=== PATIENT | female | born 1940 | race Caucasian/White ===

== ENCOUNTER 2018-12-30 16:10 | Observation (INO) | payer BC, MEDICARE ==
--- NOTE | 2018-12-30 16:49 | ED ---
General Adult HPI - General Chief complaint: Nausea/Vomiting/Diarrhea Stated complaint: weakness Time Seen by Provider: 12/30/18 16:20 Source: patient, family, RN notes reviewed Mode of arrival: wheelchair Limitations: no limitations - History of Present Illness Initial comments: This is a 78-year-old female who was brought in by family because of elevated bathroom today and not being able get up she been feeling very weak and nauseated unable eat very well she states she's had a very small bathroom and felt a toilet seat and could not get herself up. She does have a history of chronic A. fib hypertension GERD and asthma among other things. She has had a dry cough he states no overt fevers chills or sweats reported this time. She does states she woke up with sweats this morning however and did also let her self. - Related Data Home Medications Medication Instructions Recorded Confirmed Furosemide [Lasix] 20 mg PO DAILY 07/11/15 12/30/18 Meloxicam 15 mg PO DAILY 07/11/15 12/30/18 Metoprolol Tartrate [Lopressor] 50 mg PO BID 07/11/15 12/30/18 Cyanocobalamin (Vitamin B-12) 1,000 mcg PO DAILY 12/30/18 12/30/18 [Vitamin B-12] Gabapentin [Neurontin] 300 mg PO BID 12/30/18 12/30/18 Rivaroxaban [Xarelto] 20 mg PO DAILY 12/30/18 12/30/18 Sulfacetamide 10% Ophth Soln 1 drops BOTH EYES BID 12/30/18 12/30/18 [Bleph-10] prednisoLONE ACETATE [Pred Forte 1 drop BOTH EYES BID 12/30/18 12/30/18 1%] Previous Rx's Medication Instructions Recorded Escitalopram [Lexapro] 10 mg PO DAILY tab 11/06/15 Allergies Allergy/AdvReac Type Severity Reaction Status Date / Time No Known Allergies Allergy Verified 12/30/18 17:55 Review of Systems ROS Statement: Those systems with pertinent positive or pertinent negative responses have been documented in the HPI. ROS Other: All systems not noted in ROS Statement are negative. Past Medical History Past Medical History: Atrial Fibrillation, Asthma, Heart Failure, GERD/Reflux, Hyperlipidemia, Hypertension, Pneumonia Additional Past Medical History / Comment(s): back pain, hiatal hernia, divetiucular disease, used to be on rx for hypothyroid-taken off over 12 years ago, anemia, sinus problmes, arhtirits, cyst on liver, murmur, rheumatic fever, broke lt hand(had sx) History of Any Multi-Drug Resistant Organisms: None Reported Past Surgical History: Appendectomy, Back Surgery, Bariatric Surgery, Bladder Surgery, Cholecystectomy, Heart Catheterization, Hysterectomy, Joint Replaceme nt, Tubal Ligation Additional Past Surgical History / Comment(s): partial hysterectomt-still has ovaries,x2 nose sx, deviated septum and a revison sx.shawanda cataracts,x2 cervical fusion, colonoscopy IN 2002 OR 2004 HAD DEEPA EN Y THEN inc hernia repair AND tummy tuck, lt hip replacment, nerve stimulator, ulcers in bladder cauterized, lt hand sx-pt stated i think they took the hardware out" Past Anesthesia/Blood Transfusion Reactions: Postoperative Nausea & Vomiting (PONV) Additional Past Anesthesia/Blood Transfusion Reaction / Comment(s): blood transfuiosn 1971-no reaction to it. Past Psychological History: No Psychological Hx Reported Smoking Status: Former smoker Past Alcohol Use History: None Reported Past Drug Use History: None Reported - Past Family History Father Family Medical History: Cancer Additional Family Medical History / Comment(s): lung cancer Brother(s) Family Medical History: Cancer Additional Family Medical History / Comment(s): lung cancer Mother Family Medical History: Diabetes Mellitus General Exam - General Exam Comments Initial Comments: This is a well-developed asthenic appearing female who is awake alert oriented 3 Limitations: no limitations General appearance: alert, in no apparent distress Head exam: Present: atraumatic, normocephalic, normal inspection Eye exam: Present: normal appearance, PERRL, EOMI. Absent: scleral icterus, conjunctival injection, periorbital swelling ENT exam: Present: mucous membranes dry Neck exam: Present: normal inspection. Absent: tenderness, meningismus, lymp hadenopathy Respiratory exam: Present: other (Decreased breath sounds in the right lower lobe). Absent: respiratory distress, wheezes, rales, rhonchi, stridor Cardiovascular Exam: Present: tachycardia, irregular rhythm. Absent: systolic murmur, diastolic murmur, rubs, gallop, clicks GI/Abdominal exam: Present: soft, normal bowel sounds. Absent: distended, tenderness, guarding, rebound, rigid Extremities exam: Present: normal inspection, full ROM, normal capillary refill. Absent: tenderness, pedal edema, joint swelling, calf tenderness Back exam: Present: normal inspection Neurological exam: Present: alert, oriented X3, CN II-XII intact Psychiatric exam: Present: normal affect, normal mood Skin exam: Present: warm, dry, intact, normal color. Absent: rash Course Vital Signs 12/30/18 12/30/18 16:13 17:52 Temperature 98.3 F Pulse Rate 114 H 105 H Respiratory 20 18 Rate Blood Pressure 98/63 108/64 O2 Sat by Pulse 94 L 96 Oximetry - Reevaluation(s) Reevaluation #1: 12/30/18 18:38 The patient's heart rate was noted be going as high as in the 150s. She also demonstrates evidence of find depletion she will get IV fluids and will he started on Cardizem. EKG Findings - EKG Results: EKG: interpreted by ERMD (Here for ablation with a response rate 116 QRS 74 QT since QTC 3:30/[address]-T wave configuration) Medical Decision Making - Medical Decision Making Patient does demonstrate right lower lobe pneumonia dehydration A. fib with RVR. She will be admitted - Lab Data Result diagrams: 12/30/18 17:06 12/30/18 17:06 Lab Results 12/30/18 12/30/18 12/30/18 Range/Units 17:06 17:06 17:50 WBC 21.3 H (3.8-10.6) k/uL RBC 4.14 (3.80-5.40) m/uL Hgb 12.2 (11.4-16.0) gm/dL Hct 37.8 (34.0-46.0) % MCV 91.1 (80.0-100.0) fL MCH 29.5 (25.0-35.0) pg MCHC 32.4 (31.0-37.0) g/dL RDW 14.0 (11.5-15.5) % Plt Count 253 (150-450) k/uL Neutrophils % 94 % Lymphocytes % 3 % Monocytes % 2 % Eosinophils % 0 % Basophils % 0 % Neutrophils # 20.0 H (1.3-7.7) k/uL Lymphocytes # 0.6 L (1.0-4.8) k/uL Monocytes # 0.5 (0-1.0) k/uL Eosinophils # 0.0 (0-0.7) k/uL Basophils # 0.0 (0-0.2) k/uL Sodium 136 L (137-145) mmol/L Potassium 3.9 (3.5-5.1) mmol/L Chloride 98 (98-107) mmol/L Carbon Dioxide 28 (22-30) mmol/L Anion Gap 10 mmol/L BUN 15 (7-17) mg/dL Creatinine 0.84 (0.52-1.04) mg/dL Est GFR (CKD-EPI)AfAm 77 (>60 ml/min/1.73 sqM) Est GFR (CKD-EPI)NonAf 67 (>60 ml/min/1.73 sqM) Glucose 110 H (74-99) mg/dL Calcium 8.9 (8.4-10.2) mg/dL Magnesium 1.6 (1.6-2.3) mg/dL Total Bilirubin 1.1 (0.2-1.3) mg/dL AST 36 (14-36) U/L ALT 17 (9-52) U/L Alkaline Phosphatase 125 (38-126) U/L Creatine Kinase 57 (30-135) U/L Total Protein 7.4 (6.3-8.2) g/dL Albumin 3.9 (3.5-5.0) g/dL Lipase 25 (23-300) U/L Urine Color Yellow Urine Appearance Clear (Clear) Urine pH 5.0 (5.0-8.0) Ur Specific [place] 1.012 (1.001-1.035) Urine Protein Negative (Negative) Urine Glucose (UA) Negative (Negative) Urine Ketones Negative (Negative) Urine Blood Negative (Negative) Urine Nitrite Negative (Negative) Urine Bilirubin Negative (Negative) Urine Urobilinogen <2.0 (<2.0) mg/dL Ur Leukocyte Esterase Negative (Negative) - Radiology Data Radiology results: report reviewed (Review the imaging and report her lower lobe infiltrate), image reviewed Critical Care Time Critical Care Time: Yes Critical Care Time: 37 minutes of critical care time which includes initial presentation with history physical labs x-rays several reevaluation the patient discussed with the patient family regarding findings discussed with Dr. Haas admission orders and documentation of the above. Disposition Clinical Impression: Right lower lobe pneumonia, Rapid atrial fibrillation, Dehydration, Weakness Disposition: ADMITTED IP TO THIS HOSP Condition: Fair Referrals: Ellis Benson DO [Primary Care Provider] - 1-2 days
[2018-12-30 17:32] LABS: Basophils % (A) 0 %; Eosinophils % (A) 0 %; HCT 37.8 % (34.0-46.0); HGB 12.2 gm/dL (11.4-16.0); Lymphocytes # (A) 0.6 k/uL (1.0-4.8); Lymphocytes % (A) 3 %; MCH 29.5 pg (25.0-35.0); MCHC 32.4 g/dL (31.0-37.0); MCV 91.1 fL (80.0-100.0); Monocytes # (A) 0.5 k/uL (0-1.0); Monocytes % (A) 2 %; Neutrophils % (A) 94 %; Platelet Count 253 k/uL (150-450); RBC 4.14 m/uL (3.80-5.40); WBC 21.3 k/uL (3.8-10.6)
[2018-12-30 17:45] LABS: Albumin 3.9 g/dL (3.5-5.0); Calcium 8.9 mg/dL (8.4-10.2); Magnesium 1.6 mg/dL (1.6-2.3); Potassium 3.9 mmol/L (3.5-5.1); Total Bilirubin 1.1 mg/dL (0.2-1.3); Total Protein 7.4 g/dL (6.3-8.2)
--- NOTE | 2018-12-30 17:55 | CT ---
EXAMINATION TYPE: CT brain wo con DATE OF EXAM: 12/30/2018 COMPARISON: None HISTORY: severe headache started mid day. CT DLP: 1025.4 mGycm Automated exposure control for dose reduction was used. FINDINGS: There is mild cerebral atrophy. There is no mass effect nor midline shift. There is no sign of intrac ranial hemorrhage. Calvarium is intact. IMPRESSION: MINIMAL ATROPHY. NO ACUTE INTRACRANIAL ABNORMALITY.
[2018-12-30 17:58] LABS: Appearance,Urine Clear (Clear); Bilirubin,Urine Negative (Negative); Blood,Urine Negative (Negative); Color,Urine Yellow; Glucose,Urine (UA) Negative (Negative); Ketones,Urine Negative (Negative); Leukocyte Esterase,Urine Negative (Negative); Nitrite,Urine Negative (Negative); Protein,Urine Negative (Negative); Specific Gravity,Urine 1.012 (1.001-1.035); Urobilinogen,Urine <2.0 mg/dL (<2.0)
--- NOTE | 2018-12-30 18:25 | XR ---
EXAMINATION TYPE: XR chest 2V DATE OF EXAM: 12/30/2018 COMPARISON: 11/05/2015 HISTORY: Fall and weakness TECHNIQUE: Frontal and lateral views of the chest are obtained. FINDINGS: There is some patchy airspace infiltrate posterior right lower lobe in the superior segmen t. The other lung mcginnis are clear. There is no heart failure. Thoracic aorta is atheromatous. There is no pleural effusion. IMPRESSION: There is right lower lobe pneumonia that is new compared to old exam. No heart failure s een. There is probably COPD.
[2018-12-30] MEDS ORDERED: cefTRIAXone IN SWFI 1,000 MG/10 ML SYRINGE IVP STA (18:34)
[2018-12-30] MEDS ORDERED: AZITHROMYCIN 500 MG in SODIUM CHLORIDE 0.9% 250 ML IVPB STA (18:40)
[2018-12-30] MEDS ORDERED: PNEUMONIA PROTOCOL UTILIZED 1 EACH MISC PO PRN (18:40)
[2018-12-30] MEDS: SODIUM CHLORIDE 0.9% 1,000 ML IV SCH (19:16)
[2018-12-30] MEDS: DILTIAZEM 125 MG in SODIUM CHLORIDE 0.9% 100 ML IV SCH (19:38)
[2018-12-30 20:25] VITALS: BMI 25.5
[2018-12-30] MEDS: METOPROLOL TARTRATE 50 MG TAB PO SCH (20:41)
[2018-12-30] MEDS: GABAPENTIN 300 MG CAP PO SCH (20:41)
[2018-12-30] MEDS: SULFACETAMIDE SOD 10% OPHTH DROPS 15 ML BTL BOTH EYES SCH (22:29)
[2018-12-30] MEDS: prednisoLONE ACETATE 1% OPHTH DROPS 5 ML BTL BOTH EYES SCH (22:29)
[2018-12-31] MEDS: SODIUM CHLORIDE 0.9% 1,000 ML IV SCH ×2 (05:58→15:51)
--- NOTE | 2018-12-31 07:25 | XR ---
EXAMINATION TYPE: XR chest 2V DATE OF EXAM: 12/31/2018 COMPARISON: 12/30/2018 HISTORY: 78-year-old female pneumonia follow-up TECHNIQUE: PA and lateral views FINDINGS: Heart upper limits of normal in size. Atherosclerotic arch calcifications. Diffuse interstitial prom inence and hyperinflation. There are patchy densities right infrahilar region and left lower lung whi ch show some improvement. IMPRESSION: COPD with some improvement in patchy right infrahilar and right basilar densities, likely persistent but improving pneumonia. Follow-up after treatment to ensure complete clearance and exclude any under lying mass.
--- NOTE | 2018-12-31 08:25 | P.CRDCN ---
History of Present Illness Consult date: 12/31/18 Chief complaint: Weakness History of present illness: This is a pleasant 78-year-old female patient with us follow-up with a chemic mangler out of the town with a past medical history significant for long- standing persistent atrial fibrillation currently on oral anticoagulation presented to the emergency room not feeling well. The patient was shoveling snow few days ago and since then she has not been feeding well. She felt weak yesterday before she went to jainism. Also she described an episode of jaw pain. She denies any chest pain or chest discomfort, shortness of breath, dizziness, heart racing, or syncope. Overall she just feeling weak and tired and has no energy. The patient is not aware of any prior history of coronary artery disease or congestive heart failure and only cardiac history she has is atrial fibrillation which is currently receiving oral anticoagulation. When the patient presented to the hospital she was found to be in A. fib with controlled heart rate. The first set of troponin came in to be unremarkable. The EKG showed atrial fibrillation with nonspecific ST or T-wave abnormalities. The chest x-ray showed no acute abnormalities. Past Medical History Past Medical History: Atrial Fibrillation, Asthma, Heart Failure, GERD/Reflux, Hyperlipidemia, Hypertension, Pneumonia Additional Past Medical History / Comment(s): back pain, hiatal hernia, divetiucular disease, used to be on rx for hypothyroid-taken off over 12 years ago, anemia, sinus problmes, arhtirits, cyst on liver, murmur, rheumatic fever, broke lt hand(had sx) History of Any Multi-Drug Resistant Organisms: None Reported Past Surgical History: Appendectomy, Back Surgery, Bariatric Surgery, Bladder Surgery, Cholecystectomy, Heart Catheterization, Hysterectomy, Joint Replacement, Tubal Ligation Additional Past Surgical History / Comment(s): partial hysterectomt-still has ovaries,x2 nose sx, deviated septum and a revison sx.shawanda cataracts,x2 cervical fusion, colonoscopy IN 2002 OR 2004 HAD DEEPA EN Y THEN inc hernia repair AND tummy tuck, lt hip replacment, nerve stimulator, ulcers in bladder cauterized, lt hand sx-pt stated i think they took the hardware out" Past Anesthesia/Blood Transfusion Reactions: Postoperative Nausea & Vomiting (PONV) Additional Past Anesthesia/Blood Transfusion Reaction / Comment(s): blood transfuiosn 1971-no reaction to it. Past Psychological History: No Psychological Hx Reported Smoking Status: Former smoker Past Alcohol Use History: None Reported Additional Past Alcohol Use History / Comment(s): smoked for 18 years, 1ppd, quit 1996 Past Drug Use History: None Reported - Past Family History Father Family Medical History: Cancer Additional Family Medical History / Comment(s): lung cancer Brother(s) Family Medical History: Cancer Additional Family Medical History / Comment(s): lung cancer Mother Family Medical History: Diabetes Mellitus Medications and Allergies Home Medications Medication Instructions Recorded Confirmed Type Furosemide [Lasix] 20 mg PO DAILY 07/11/15 12/30/18 History Meloxicam 15 mg PO DAILY 07/11/15 12/30/18 History Metoprolol Tartrate [Lopressor] 50 mg PO BID 07/11/15 12/30/18 History Escitalopram [Lexapro] 10 mg PO DAILY tab 11/06/15 12/30/18 Rx Cyanocobalamin (Vitamin B-12) 1,000 mcg PO DAILY 12/30/18 12/30/18 History [Vitamin B-12] Gabapentin [Neurontin] 300 mg PO BID 12/30/18 12/30/18 History HYDROcodone/APAP 7.5-325MG [Burley 1 tab PO BID 12/30/18 12/30/18 History 7.5-325] Rivaroxaban [Xarelto] 20 mg PO DAILY 12/30/18 12/30/18 History Sulfacetamide 10% Ophth Soln 1 drops BOTH EYES BID 12/30/18 12/30/18 History [Bleph-10] prednisoLONE ACETATE [Pred Forte 1 drop BOTH EYES BID 12/30/18 12/30/18 History 1%] Allergies Allergy/AdvReac Type Severity Reaction Status Date / Time No Known Allergies Allergy Verified 12/30/18 17:55 Physical Exam Vitals: Vital Signs Temp Pulse Pulse Resp BP BP Pulse Ox 12/31/18 08:00 98.1 F 74 18 114/58 98 12/31/18 04:00 98.1 F 69 18 102/58 96 12/31/18 00:00 99.0 F 63 17 98/50 96 12/30/18 20:00 98.6 F 110 H 18 126/62 99 12/30/18 19:45 98.6 F 110 H 18 126/62 99 12/30/18 19:29 112 H 18 106/50 95 12/30/18 17:52 105 H 18 108/64 96 12/30/18 16:13 98.3 F 114 H 20 98/63 94 L Intake and Output 12/30/18 12/31/18 12/31/18 22:59 06:59 14:59 Intake Total 932.333 20 250 Balance 932.333 20 250 Intake: IV 10 20 10 Invasive Line 2 10 20 10 Intake, IV Titration 109.333 Amount Diltiazem 125 mg In 9.333 Sodium Chloride 0.9% 100 ml @ 5 MG/HR 5 mls/hr IV .Q24H KELLY Rx#:[id number] cefTRIAXone 1 gm In 100 Sodium Chloride 0.9% 50 ml @ 100 mls/hr IVPB Q24HR [facility] Rx#:[id number] Oral 813 240 Other: Voiding Method Toilet Toilet # Voids 2 Weight 63.503 kg 61.8 kg - Respiratory Respiratory: bilateral: CTA - Cardiovascular Rhythm: irregularly irregular Heart sounds: normal: S1, S2 Results 12/30/18 17:06 12/30/18 17:06 Cardiac Enzymes 12/30/18 12/30/18 Range/Units 17:06 17:06 AST 36 (14-36) U/L Troponin I <0.012 (0.000-0.034) ng/mL CBC 12/30/18 Range/Units 17:06 WBC 21.3 H (3.8-10.6) k/uL RBC 4.14 (3.80-5.40) m/uL Hgb 12.2 (11.4-16.0) gm/dL Hct 37.8 (34.0-46.0) % Plt Count 253 (150-450) k/uL Comprehensive Metabolic Panel 12/30/18 Range/Units 17:06 Sodium 136 L (137-145) mmol/L Potassium 3.9 (3.5-5.1) mmol/L Chloride 98 (98-107) mmol/L Carbon Dioxide 28 (22-30) mmol/L BUN 15 (7-17) mg/dL Creatinine 0.84 (0.52-1.04) mg/dL Glucose 110 H (74-99) mg/dL Calcium 8.9 (8.4-10.2) mg/dL AST 36 (14-36) U/L ALT 17 (9-52) U/L Alkaline Phosphatase 125 (38-126) U/L Total Protein 7.4 (6.3-8.2) g/dL Albumin 3.9 (3.5-5.0) g/dL Current Medications Generic Name Dose Route Start Last Admin Trade Name Freq PRN Reason Stop Dose Admin Hydrocodone Bitart/Acetaminophen 1 each 12/31/18 09:00 Burley 7.5-325 PO BID [facility] Azithromycin 500 mg 12/31/18 12:00 Zithromax PO DAILY [facility] Cyanocobalamin 1,000 mcg 12/31/18 09:00 Vitamin B-12 PO DAILY [facility] Escitalopram Oxalate 10 mg 12/31/18 09:00 Lexapro PO DAILY [facility] Famotidine 20 mg 12/31/18 09:00 Pepcid IV DAILY [facility] Furosemide 20 mg 12/31/18 09:00 Lasix PO DAILY [facility] Gabapentin 300 mg 12/30/18 21:00 12/30/18 20:41 Neurontin PO 300 mg BID [facility] Administration Diltiazem HCl 125 mg/ Sodium 125 mls @ 5 mls/hr 12/30/18 18:45 12/30/18 21:30 Chloride IV 0 mg/hr .Q24H KELLY 0 mls/hr Infusion 5 MG/HR Sodium Chloride 1,000 mls @ 100 mls/hr 12/30/18 18:45 12/31/18 05:58 Saline 0.9% IV Not Given .Q10H [facility] Ceftriaxone Sodium 1 gm/ 50 mls @ 100 mls/hr 12/31/18 09:00 Sodium Chloride IVPB 01/03/19 09:01 Q24HR [facility] Meloxicam 15 mg 12/31/18 09:00 Mobic PO DAILY [facility] Metoprolol Tartrate 50 mg 12/30/18 21:00 12/30/18 20:41 Lopressor PO 50 mg BID [facility] Administration Miscellaneous Information 1 each 12/30/18 18:40 Pneumonia Protocol Utilized PO ONCE PRN Per Protocol Prednisolone Acetate 1 drops 12/30/18 21:00 12/30/18 22:29 Pred Forte 1% BOTH EYES 1 drops BID [facility] Administration Rivaroxaban 20 mg 12/31/18 09:00 Xarelto PO DAILY [facility] Sulfacetamide Sodium 1 drops 12/30/18 21:00 11/17/19 22:29 Bleph-10 BOTH EYES 1 drops BID KELLY Administration Intake and Output 12/30/18 12/31/18 12/31/18 22:59 06:59 14:59 Intake Total 932.333 20 250 Balance 932.333 20 250 Intake: IV 10 20 10 Invasive Line 2 10 20 10 Intake, IV Titration 109.333 Amount Diltiazem 125 mg In 9.333 Sodium Chloride 0.9% 100 ml @ 5 MG/HR 5 mls/hr IV .Q24H [facility] Rx#:[id number] cefTRIAXone 1 gm In 100 Sodium Chloride 0.9% 50 ml @ 100 mls/hr IVPB Q24HR [facility] Rx#:[id number] Oral 813 240 Other: Voiding Method Toilet Toilet # Voids 2 Weight 63.503 kg 61.8 kg 12/30/18 17:06 12/30/18 17:06 Assessment and Plan Assessment: Assessment #1 generalized weakness and fatigue #2 long-standing persistent atrial fibrillation #3 jaw pain Plan #1 rule out acute coronary event #2 we'll follow-up on serial cardiac enzymes #3 obtain an echocardiogram was Doppler #4 follow-up with the patient
[2018-12-31] MEDS ORDERED: FAMOTIDINE 20 MG/2 ML VIAL IV SCH (09:00)
[2018-12-31] MEDS: RIVAROXABAN 20 MG TAB PO SCH (09:22)
[2018-12-31] MEDS: ESCITALOPRAM 10 MG TAB PO SCH (09:22)
[2018-12-31] MEDS: METOPROLOL TARTRATE 50 MG TAB PO SCH ×2 (09:22→20:58)
[2018-12-31] MEDS: CYANOCOBALAMIN 500 MCG TAB PO SCH (09:22)
[2018-12-31] MEDS: HYDROcodone/APAP 7.5-325MG 1 EACH TAB PO SCH ×2 (09:22→20:58)
[2018-12-31] MEDS: GABAPENTIN 300 MG CAP PO SCH ×2 (09:23→20:58)
[2018-12-31] MEDS: MELOXICAM 7.5 MG TAB PO SCH (09:23)
[2018-12-31] MEDS: prednisoLONE ACETATE 1% OPHTH DROPS 5 ML BTL BOTH EYES SCH ×2 (09:24→20:58)
[2018-12-31] MEDS: FUROSEMIDE 20 MG TAB PO SCH (09:24)
[2018-12-31] MEDS: SULFACETAMIDE SOD 10% OPHTH DROPS 15 ML BTL BOTH EYES SCH ×2 (09:24→20:58)
--- NOTE | 2018-12-31 11:03 | P.HPIM ---
History of Present Illness This is a pleasant 78 years old female with past medical history of heart failure, atrial fibrillation on Xarelto, asthma, hyperlipidemia, hypertension, rheumatic fever with heart murmur. This is a patient was going to the [employer] and she was preparing food and filiform and suddenly she feels fatigued and she had to go to bed and sleep for 2-3 hours, after waking up she felt dizzy and weak while she's going to the restroom and she fell without hurting herself or head trauma. She denies chest pain however occasionally she has general pain, over the last week she was having pain in her back between shoulder blades, she also has dry cough but no dyspnea as per patient. No change in urine or bowel habits She is ex-smoker, quit more than 20 years, occasional drinking of wine, no illicit tracts On the presentation Vitas looks stable, blood pressure 102/58. On the presentation blood pressure was on the low side with 98/63 and slightly tachycardic 105-114. At baseline it was 6.5 in 2016. Hemoglobin, and urinalysis were unremarkable. BMP and liver enzymes were not elevated. Chest x-ray: Right lower lobe pneumonia with possible COPD. EKG showing atrial fibrillation's with RVR at 116. On presentation patient was started on ceftriaxone and Zithromax, and started on Cardizem drip and continued on Xarelto Review of Systems CONSTITUTIONAL: No fever, no malaise, no fatigue. HEENT: No recent visual problems or hearing problems. Denied any sore throat. CARDIOVASCULAR: No orthopnea, PND, no palpitations, no syncope. PULMONARY:no hemoptysis. GASTROINTESTINAL: No diarrhea, no nausea, no vomiting, no abdominal pain. Normoactive bowel sounds. NEUROLOGICAL: No headaches, no weakness, no numbness. HEMATOLOGICAL: Denies any bleeding or petechiae. GENITOURINARY: Denies any burning micturition, frequency, or urgency. MUSCULOSKELETAL/RHEUMATOLOGICAL: Denies any joint pain, swelling, or any muscle pain. ENDOCRINE: Denies any polyuria or polydipsia. Past Medical History Past Medical History: Atrial Fibrillation, Asthma, Heart Failure, GERD/Reflux, Hyperlipidemia, Hypertension, Pneumonia Additional Past Medical History / Comment(s): back pain, hiatal hernia, divetiucular disease, used to be on rx for hypothyroid-taken off over 12 years ago, anemia, sinus problmes, arhtirits, cyst on liver, murmur, rheumatic fever, broke lt hand(had sx) History of Any Multi-Drug Resistant Organisms: None Reported Past Surgical History: Appendectomy, Back Surgery, Bariatric Surgery, Bladder Surgery, Cholecystectomy, Heart Catheterization, Hysterectomy, Joint Replacement , Tubal Ligation Additional Past Surgical History / Comment(s): partial hysterectomt-still has ovaries,x2 nose sx, deviated septum and a revison sx.shawanda cataracts,x2 cervical f usion, colonoscopy IN 2002 OR 2004 HAD DEEPA EN Y THEN inc hernia repair AND tummy tuck, lt hip replacment, nerve stimulator, ulcers in bladder cauterized, lt hand sx-pt stated i think they took the hardware out" Past Anesthesia/Blood Transfusion Reactions: Postoperative Nausea & Vomiting (PONV) Additional Past Anesthesia/Blood Transfusion Reaction / Comment(s): blood transfuiosn 1971-no reaction to it. Past Psychological History: No Psychological Hx Reported Smoking Status: Former smoker Past Alcohol Use History: None Reported Additional Past Alcohol Use History / Comment(s): smoked for 18 years, 1ppd, quit 1996 Past Drug Use History: None Reported - Past Family History Father Family Medical History: Cancer Additional Family Medical History / Comment(s): lung cancer Brother(s) Family Medical History: Cancer Additional Family Medical History / Comment(s): lung cancer Mother Family Medical History: Diabetes Mellitus Medications and Allergies Home Medications Medication Instructions Recorded Confirmed Type Furosemide [Lasix] 20 mg PO DAILY 07/11/15 12/30/18 History Meloxicam 15 mg PO DAILY 07/11/15 12/30/18 History Metoprolol Tartrate [Lopressor] 50 mg PO BID 07/11/15 12/30/18 History Escitalopram [Lexapro] 10 mg PO DAILY tab 11/06/15 12/30/18 Rx Cyanocobalamin (Vitamin B-12) 1,000 mcg PO DAILY 12/30/18 12/30/18 History [Vitamin B-12] Gabapentin [Neurontin] 300 mg PO BID 12/30/18 12/30/18 History HYDROcodone/APAP 7.5-325MG [Beverly 1 tab PO BID 12/30/18 12/30/18 History 7.5-325] Rivaroxaban [Xarelto] 20 mg PO DAILY 12/30/18 12/30/18 History Sulfacetamide 10% Ophth Soln 1 drops BOTH EYES BID 12/30/18 12/30/18 History [Bleph-10] prednisoLONE ACETATE [Pred Forte 1 drop BOTH EYES BID 12/30/18 12/30/18 History 1%] Allergies Allergy/AdvReac Type Severity Reaction Status Date / Time No Known Allergies Allergy Verified 12/30/18 17:55 Physical Exam Vitals: Vital Signs Temp Pulse Pulse Resp BP BP Pulse Ox 12/31/18 04:00 98.1 F 69 18 102/58 96 12/31/18 00:00 99.0 F 63 17 98/50 96 12/30/18 20:00 98.6 F 110 H 18 126/62 99 12/30/18 19:45 98.6 F 110 H 18 126/62 99 12/30/18 19:29 112 H 18 106/50 95 12/30/18 17:52 105 H 18 108/64 96 12/30/18 16:13 98.3 F 114 H 20 98/63 94 L Intake and Output 12/30/18 12/30/18 12/31/18 14:59 22:59 06:59 Intake Total 932.333 20 Balance 932.333 20 Intake: IV 10 20 Invasive Line 2 10 20 Intake, IV Titration 109.333 Amount Diltiazem 125 mg In 9.333 Sodium Chloride 0.9% 100 ml @ 5 MG/HR 5 mls/hr IV .Q24H [facility] Rx#:[id number] cefTRIAXone 1 gm In 100 Sodium Chloride 0.9% 50 ml @ 100 mls/hr IVPB Q24HR [facility] Rx#:[id number] Oral 813 Other: Voiding Method Toilet Toilet # Voids 2 Weight 63.503 kg 61.8 kg GENERAL: The patient is alert and oriented x3, not in any acute distress. Well developed, well nourished. HEENT: Pupils are round and equally reacting to light. EOMI. No scleral icterus. No conjunctival pallor. Normocephalic, atraumatic. No pharyngeal erythema. No thyromegaly. CARDIOVASCULAR: S1 and S2 present. No murmurs, rubs, or gallops. PULMONARY: Chest is clear to auscultation, no wheezing or crackles. Harsh breath sounds on the right lower lobe.- ABDOMEN: Soft, nontender, nondistended, normoactive bowel sounds. No palpable organomegaly. MUSCULOSKELETAL: No joint swelling or deformity. EXTREMITIES: No cyanosis, clubbing, or pedal edema. NEUROLOGICAL: Gross neurological examination did not reveal any focal deficits. SKIN: No rashes. No petechiae Results CBC & Chem 7: 12/30/18 17:06 12/30/18 17:06 Labs: Abnormal Lab Results - Last 24 Hours (Table) 12/30/18 12/30/18 Range/Units 17: 17:06 WBC 21.3 H (3.8-10.6) k/uL Neutrophils # 20.0 H (1.3-7.7) k/uL Lymphocytes # 0.6 L (1.0-4.8) k/uL Sodium 136 L (137-145) mmol/L Glucose 110 H (74-99) mg/dL Thrombosis Risk Factor Assmnt - Choose All That Apply Any of the Below Risk Factors Present?: Yes Each Factor Represents 1 point: Serious lung disease incl. pneumonia (< 1month) Other Risk Factors: Yes Each Risk Factor Represents 3 Points: Age 75 years or older Other congenital or acquired thrombophilia - If yes, enter type in comment: No Thrombosis Risk Factor Assessment Total Risk Factor Score: 4 Thrombosis Risk Factor Assessment Level: Moderate Risk Assessment and Plan Assessment: Back pain/jaw pain, rule out cardiac causes Right lower lobe pneumonia with possible COPD Generalized weakness Chronic congestive heart failure atrial fibrillation with RVR. Hypertension Hyperlipidemia History of rheumatic fever with heart murmur Asthma, not in acute exacerbation Plan: This is a pleasant 78 years old female who presents because of pneumonia and A. fib with RVR. Call cardiology consult. Continue with Xarelto with antibiotics and follow-up sputum and blood culture. Call pulmonary consult Labs and medication were reviewed.. Continue same treatment. Continue with symptomatic treatment. Resume home medication. Monitor lytes and vitals. DVT and GI prophylaxis. Further recommendations of the clinical course of the patient DVT prophylaxis: Xarelto GI Prophylaxis: Pepcid PT/OT: Pending Prognosis is guarded
--- NOTE | 2018-12-31 11:34 | ECHOF ---
Referral Reason:Afib RVR MEASUREMENTS -------- HEIGHT: 160.0 cm WEIGHT: 61.7 kg BP: 114/58 RVIDd: 2.4 cm (< 3.3) IVSd: 0.9 cm (0.6 - 1.1) LVIDd: 3.3 cm (3.9 - 5.3) LVPWd: 0.9 cm (0.6 - 1.1) IVSs: 1.1 cm LVIDs: 2.0 cm LVPWs: 1.2 cm LAESV Index (A-L): 59.82 ml/m Ao Diam: 2.7 cm (2.0 - 3.7) AV Cusp: 1.0 cm (1.5 - 2.6) LA Diam: 4.0 cm (2.7 - 3.8) MV EXCURSION: 14.230 mm (> 18.000) MV EF SLOPE: 69 mm/s (70 - 150) EPSS: 2.1 cm AV maxP.30 mmHg AV meanP.03 mmHg AR PHT: 507 ms RAP: 20.00 mmHg RVSP: 67.13 mmHg FINDINGS -------- Atrial fibrillation. This was a technically adequate study. The left ventricular size is normal. Left ventricular wall thickness is normal. Overall left vent ricular systolic function is low-normal with, an EF between 50 - 55 %. Left ventricular fillimg pre ssure cannot be estimated due to Atrial fibrillation. The right ventricle is normal in size. LA is severely dilated >40 ml/m2 The right atrial size is normal. Interatrial and interventricular septum intact. Aortic valve is trileaflet and is mildly thickened. There is mild to moderate aortic valve sclerosi s. There is mild aortic regurgitation. The mitral valve is normal. Moderate mitral regurgitation is present. The tricuspid valve appears structurally normal. Moderate tricuspid regurgitation present. There is moderate pulmonary hypertension. The right ventricular systolic pressure, as measured by Doppler , is 67.13mmHg. Trace/mild (physiologic) pulmonic regurgitation. The aortic root size is normal. The inferior vena cava is dilated with no significant inspiratory collapse which is consistent estima marcellus right atrial pressure of >20 mmHg. There is no pericardial effusion. CONCLUSIONS -------- 1. Atrial fibrillation. 2. This was a technically adequate study. 3. The left ventricular size is normal. 4. Left ventricular wall thickness is normal. 5. Overall left ventricular systolic function is low-normal with, an EF between 50 - 55 %. 6. Left ventricular fillimg pressure cannot be estimated due to Atrial fibrillation. 7. The right ventricle is normal in size. 8. LA is severely dilated >40 ml/m2 9. The right atrial size is normal. 10. Interatrial and interventricular septum intact. 11. Aortic valve is trileaflet and is mildly thickened. 12. There is mild to moderate aortic valve sclerosis. 13. There is mild aortic regurgitation. 14. The mitral valve is normal. 15. Moderate mitral regurgitation is present. 16. The tricuspid valve appears structurally normal. 17. Moderate tricuspid regurgitation present. 18. There is moderate pulmonary hypertension. 19. The right ventricular systolic pressure, as measured by Doppler, is 67.13mmHg. 20. Trace/mild (physiologic) pulmonic regurgitation. 21. The aortic root size is normal. 22. The inferior vena cava is dilated with no significant inspiratory collapse which is consistent es timated right atrial pressure of >20 mmHg. 23. There is no pericardial effusion. ENGINEERING SURVEYOR: Cindy Ramos RDCS
--- NOTE | 2018-12-31 12:48 | P.PN ---
Subjective Progress Note Date: 12/31/18 Principal diagnosis: Dyspnea, right mid and basilar pneumonia This is a 78-year-old patient of Dr. Benson in [place], with past medical history of chronic A. fib on Xarelto, chronic congestive heart failure, hypertension, hyperlipidemia, chronic back pain, remote history of smoking in remission for the last 23 years, patient does carry [id number] smoking history. Patient presented to the emergency department on 12/30/2018 with complaints of weakness, nausea, inability to eat. She has had a dry cough, headache, but no fever, no chills. Apparently patient woke up with the sweats on the morning of 12/30/2018, came into the ER for evaluation. Brain CT was completed in the emergency department related to severe headache and showed no acute intracranial abnormality, chest x-ray right lower lobe pneumonia. Lab work showed a white blood cell count of 21.3, hemoglobin of 12.2, sodium of 136, the rest of electrolytes and renal profile were within normal limits, troponins were negative, LFTs were within normal limits, UA was negative. Patient has been afebrile since admission, her pulse ox is 96-98. She has been started on the comminution Zithromax and ceftriaxone, or write mid and right lower lobe pneumonia, follow-up chest x-ray was completed today showing some improvement in the patchy right infrahilar and right basilar densities. The patient is awake and alert, no acute distress, she states she is breathing much easier, she is on room air, no fever or chills. Objective - Vital Signs Vital signs: Vital Signs Temp 98.1 F 12/31/18 08:00 Pulse 74 12/31/18 08:00 Resp 18 12/31/18 08:00 BP 114/58 12/31/18 08:00 Pulse Ox 98 12/31/18 08:00 Intake & Output 12/30/18 12/31/18 12/31/18 18:59 06:59 18:59 Intake Total 952.333 250 Balance 952.333 250 Weight 63.503 kg 61.8 kg Intake: IV 30 10 Invasive Line 2 30 10 Intake, IV Titration 109.333 Amount Diltiazem 125 mg In 9.333 Sodium Chloride 0.9% 100 ml @ 5 MG/HR 5 mls/hr IV .Q24H [facility] Rx#:[id number] cefTRIAXone 1 gm In 100 Sodium Chloride 0.9% 50 ml @ 100 mls/hr IVPB Q24HR [facility] Rx#:[id number] Oral 813 240 Other: Voiding Method Toilet Toilet # Voids 2 - Exam GENERAL EXAM: Alert, very pleasant 78-year-old female on room air comfortable in no apparent distress. HEAD: Normocephalic/atraumatic. EYES: Normal reaction of pupils, equal size. Conjunctiva pink, sclera white. NOSE: Clear with pink turbinates. THROAT: No erythema or exudates. NECK: No masses, no JVD, no thyroid enlargement, no adenopathy. CHEST: No chest wall deformity. Symmetrical expansion. LUNGS: Equal air entry with no crackles, wheeze, rhonchi or dullness. CVS: Irregular rate and rhythm, normal S1 and S2, no gallops, no murmurs, no rubs ABDOMEN: Soft, nontender. No hepatosplenomegaly, normal bowel sounds, no guarding or rigidity. EXTREMITIES: No clubbing, no edema, no cyanosis, 2+ pulses and upper and lower extremities. MUSCULOSKELETAL: Muscle strength and tone normal. SPINE: No scoliosis or deformity SKIN: No rashes CENTRAL NERVOUS SYSTEM: Alert and oriented -3. No focal deficits, tone is normal in all 4 extremities. PSYCHIATRIC: Alert and oriented -3. Appropriate affect. Intact judgment and insight. - Labs CBC & Chem 7: 12/30/18 17:06 12/30/18 17:06 Labs: Abnormal Lab Results - Last 24 Hours (Table) 12/30/18 12/30/18 Range/Units 17:06 17:06 WBC 21.3 H (3.8-10.6) k/uL Neutrophils # 20.0 H (1.3-7.7) k/uL Lymphocytes # 0.6 L (1.0-4.8) k/uL Sodium 136 L (137-145) mmol/L Glucose 110 H (74-99) mg/dL Assessment and Plan Plan: Assessment: #1. Dyspnea related to right lung pneumonia, and chest x-ray showed patchy right infrahilar and right basilar densities likely related to community acquired pneumonia. #2. Chronic A. fib on Xarelto #3. 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 Generalized weakness and fatigue #5. Preserved left ventricular systolic function as noted on the echocardiogram with EF of 50-55%, moderate mitral regurgitation, moderate tricuspid regurgitation and moderate pulmonary hypertension with right-sided pressures of 67 mmHg #6. Hypertension #7. Hyperlipidemia #8. History of congestive heart failure with preserved left ventricular systolic function #9. History of diverticular disease Plan: Continue current antibiotic coverage, today's follow-up chest x-ray shows improvement in the appearance of right perihilar and right basal infiltrates and clinically patient remains stable, continue with oral anticoagulation, increase activity as tolerated, from pulmonary perspective the patient could be considered for discharge home today or tomorrow on oral antibiotics. Follow-up with Dr. Senior in the office in one or 2 weeks I performed a history & physical examination of the patient and discussed their management with my nurse practitioner, Lenka Salinas. I reviewed the nurse practitioner's note and agree with the documented findings and plan of care. Lung sounds are positive for clear breath sounds. The findings and the impression was discussed with the patient. I attest to the documentation by the nurse practitioner. Time with Patient: Greater than 30
[2018-12-31] MEDS: AZITHROMYCIN 500 MG TAB PO SCH (15:51)
[2018-12-31] MEDS: DILTIAZEM 125 MG in SODIUM CHLORIDE 0.9% 100 ML IV SCH (20:54)
[2019-01-01] MEDS: SODIUM CHLORIDE 0.9% 1,000 ML IV SCH ×2 (05:56→13:30)
[2019-01-01] MEDS ORDERED: FAMOTIDINE 20 MG TAB PO SCH (09:00)
[2019-01-01] MEDS: MELOXICAM 7.5 MG TAB PO SCH (09:04)
[2019-01-01] MEDS: CYANOCOBALAMIN 500 MCG TAB PO SCH (09:04)
[2019-01-01] MEDS: ESCITALOPRAM 10 MG TAB PO SCH (09:05)
[2019-01-01] MEDS: HYDROcodone/APAP 7.5-325MG 1 EACH TAB PO SCH (09:05)
[2019-01-01] MEDS: AZITHROMYCIN 500 MG TAB PO SCH (09:05)
[2019-01-01] MEDS: FUROSEMIDE 20 MG TAB PO SCH (09:05)
[2019-01-01] MEDS: RIVAROXABAN 20 MG TAB PO SCH (09:05)
[2019-01-01] MEDS: METOPROLOL TARTRATE 50 MG TAB PO SCH (09:05)
[2019-01-01] MEDS: GABAPENTIN 300 MG CAP PO SCH (09:05)
[2019-01-01] MEDS: prednisoLONE ACETATE 1% OPHTH DROPS 5 ML BTL BOTH EYES SCH (09:06)
[2019-01-01] MEDS: SULFACETAMIDE SOD 10% OPHTH DROPS 15 ML BTL BOTH EYES SCH (09:06)
[2019-01-01 09:41] LABS: Basophils % (A) 0 %; Eosinophils # (A) 0.1 k/uL (0-0.7); Eosinophils % (A) 2 %; HCT 31.5 % (34.0-46.0); HGB 10.5 gm/dL (11.4-16.0); Lymphocytes # (A) 1.3 k/uL (1.0-4.8); Lymphocytes % (A) 15 %; MCH 30.8 pg (25.0-35.0); MCHC 33.2 g/dL (31.0-37.0); MCV 92.8 fL (80.0-100.0); Mean Platelet Volume 7.5; Monocytes # (A) 0.3 k/uL (0-1.0); Monocytes % (A) 4 %; Neutrophils % (A) 78 %; Platelet Count 237 k/uL (150-450); RBC 3.39 m/uL (3.80-5.40); RDW 14.3 % (11.5-15.5); WBC 8.9 k/uL (3.8-10.6)
--- NOTE | 2019-01-01 09:59 | P.PN ---
Subjective Progress Note Date: 01/01/19 Principal diagnosis: Generalized weakness This is a pleasant 78-year-old female patient with us follow-up with a lab rep out of the town with a past medical history significant for long- standing persistent atrial fibrillation currently on oral anticoagulation presented to the emergency room not feeling well. The patient was shoveling snow few days ago and since then she has not been feeding well. She felt weak yesterday before she went to [facility]. Also she described an episode of jaw pain. She denies any chest pain or chest discomfort, shortness of breath, dizziness, heart racing, or syncope. Overall she just feeling weak and tired and has no energy. The patient is not aware of any prior history of coronary artery disease or congestive heart failure and only cardiac history she has is atrial fibrillation which is currently receiving oral anticoagulation. When the patient presented to the hospital she was found to be in A. fib with controlled heart rate. The first set of troponin came in to be unremarkable. The EKG showed atrial fibrillation with nonspecific ST or T-wave abnormalities. The chest x-ray showed no acute abnormalities. The patient was seen this morning, January [id number]. Overall she is feeling better. She denies any chest pain, shortness of breath, dizziness, or heart racing feeling. She continues to be in atrial fibrillation was controlled heart rate. She was ruled out for acute coronary syndrome with a 3 sets of normal troponin. The echo showed normal LV function was moderate tricuspid regurgitation. From the cardiac vascular standpoint of view, the patient can be discharged home. Objective - Vital Signs Vital signs: Vital Signs Temp 98.8 F 01/01/19 04:00 Pulse 89 01/01/19 04:00 Resp 18 01/01/19 04:00 BP 164/84 01/01/19 04:00 Pulse Ox 98 01/01/19 04:00 Intake & Output 12/31/18 01/01/19 01/01/19 18:59 06:59 18:59 Intake Total 620 180 Balance 620 180 Intake: IV 20 Invasive Line 2 20 Oral 600 180 Other: Voiding Method Toilet Toilet # Voids 2 - Constitutional General appearance: Present: no acute distress - Respiratory Respiratory: bilateral: diminished - Cardiovascular Rhythm: irregularly irregular Heart sounds: normal: S1, S2 - Labs CBC & Chem 7: 01/01/19 09:23 12/30/18 17:06 Labs: Abnormal Lab Results - Last 24 Hours (Table) 01/01/19 Range/Units 09:23 RBC 3.39 L (3.80-5.40) m/uL Hgb 10.5 L (11.4-16.0) gm/dL Hct 31.5 L (34.0-46.0) % Microbiology - Last 24 Hours (Table) 12/30/18 17:06 Blood Culture - Preliminary Blood No Growth after 24 hours Assessment and Plan Assessment: Assessment #1 generalized weakness and fatigue #2 long-standing persistent atrial fibrillation #3 jaw pain Plan #1 continue the current medical regimen #2 add oral nitrates to the current medical regimen #3 the patient can be discharged home
[2019-01-01] MEDS: IPRATROPIUM-ALBUTEROL 3 ML NEB INHALATION PRN ×2 (10:02→15:06)
--- NOTE | 2019-01-01 12:28 | P.PN ---
Subjective Progress Note Date: 01/01/19 Principal diagnosis: Dyspnea, right mid and basilar pneumonia This is a 78-year-old patient of Dr. Benson in [place], with past medical history of chronic A. fib on Xarelto, chronic congestive heart failure, hypertension, hyperlipidemia, chronic back pain, remote history of smoking in remission for the last 23 years, patient does carry [id number] smoking history. Patient presented to the emergency department on 12/30/2018 with complaints of weakness, nausea, inability to eat. She has had a dry cough, headache, but no fever, no chills. Apparently patient woke up with the sweats on the morning of 12/30/2018, came into the ER for evaluation. Brain CT was completed in the emergency department related to severe headache and showed no acute intracranial abnormality, chest x-ray right lower lobe pneumonia. Lab work showed a white blood cell count of 21.3, hemoglobin of 12.2, sodium of 136, the rest of electrolytes and renal profile were within normal limits, troponins were negative, LFTs were within normal limits, UA was negative. Patient has been afebrile since admission, her pulse ox is 96-98. She has been started on the comminution Zithromax and ceftriaxone, or write mid and right lower lobe pneumonia, follow-up chest x-ray was completed today showing some improvement in the patchy right infrahilar and right basilar densities. The patient is awake and alert, no acute distress, she states she is breathing much easier, she is on room air, no fever or chills. On 01/01/2019 patient seen in follow-up on selective care unit, she is breathing easier, no acute distress, she denies any chest pain, denies any shortness of breath, dizziness, or palpitations. Denies A. fib with a controlled rate, denies any fever or chills. She is doing well, she's been evaluated by cardiology and she was cleared for discharge home from cardiac standpoint. She is on room air with pulse ox of 98%, her lung sounds are clear, no significant cough or congestion. Objective - Vital Signs Vital signs: Vital Signs Temp 98.8 F 01/01/19 04:00 Pulse 78 01/01/19 10:12 Resp 18 01/01/19 04:00 BP 164/84 01/01/19 04:00 Pulse Ox 98 01/01/19 04:00 Intake & Output 12/31/18 01/01/19 01/01/19 18:59 06:59 18:59 Intake Total 620 180 Balance 620 180 Intake: IV 20 Invasive Line 2 20 Oral 600 180 Other: Voiding Method Toilet Toilet # Voids 2 2 - Exam GENERAL EXAM: Alert, very pleasant 78-year-old female on room air comfortable in no apparent distress. HEAD: Normocephalic/atraumatic. EYES: Normal reaction of pupils, equal size. Conjunctiva pink, sclera white. NOSE: Clear with pink turbinates. THROAT: No erythema or exudates. NECK: No masses, no JVD, no thyroid enlargement, no adenopathy. CHEST: No chest wall deformity. Symmetrical expansion. LUNGS: Equal air entry with no crackles, wheeze, rhonchi or dullness. CVS: Irregular rate and rhythm, normal S1 and S2, no gallops, no murmurs, no rubs ABDOMEN: Soft, nontender. No hepatosplenomegaly, normal bowel sounds, no guarding or rigidity. EXTREMITIES: No clubbing, no edema, no cyanosis, 2+ pulses and upper and lower extremities. MUSCULOSKELETAL: Muscle strength and tone normal. SPINE: No scoliosis or deformity SKIN: No rashes CENTRAL NERVOUS SYSTEM: Alert and oriented -3. No focal deficits, tone is normal in all 4 extremities. PSYCHIATRIC: Alert and oriented -3. Appropriate affect. Intact judgment and insight. - Labs CBC & Chem 7: 01/01/19 09:23 12/30/18 17:06 Labs: Abnormal Lab Results - Last 24 Hours (Table) 01/01/19 Range/Units 09:23 RBC 3.39 L (3.80-5.40) m/uL Hgb 10.5 L (11.4-16.0) gm/dL Hct 31.5 L (34.0-46.0) % Microbiology - Last 24 Hours (Table) 12/30/18 17:06 Blood Culture - Preliminary Blood No Growth after 24 hours Assessment and Plan Plan: Assessment: #1. Dyspnea related to right lung pneumonia, and chest x-ray showed patchy right infrahilar and right basilar densities likely related to community acquired pneumonia. #2. Chronic A. fib on Xarelto #3. 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 Generalized weakness and fatigue #5. Preserved left ventricular systolic function as noted on the echocardiogram with EF of 50-55%, moderate mitral regurgitation, moderate tricuspid regurgitation and moderate pulmonary hypertension with right-sided pressures of 67 mmHg #6. Hypertension #7. Hyperlipidemia #8. History of congestive heart failure with preserved left ventricular systolic function #9. History of diverticular disease Plan: Patient remains stable, no worsening dyspnea, no compressive chest pain, no fever or chills, from pulmonary perspective patient is clear to go home today, she will need outpatient follow-up with Dr. Kemp in the office. Her latest chest x-ray showed improvement in the appearance of right mid and lower lobe pneumonia, clinically patient also remains stable, and improving. I performed a history & physical examination of the patient and discussed their management with my nurse practitioner, Lenka Salinas. I reviewed the nurse practitioner's note and agree with the documented findings and plan of care. Lung sounds are positive for clear breath sounds. The findings and the impression was discussed with the patient. I attest to the documentation by the nurse practitioner. Time with Patient: Less than 30
--- NOTE | 2019-01-01 13:05 | PN ---
PROGRESS NOTE PULMONARY/CRITICAL CARE PROGRESS NOTE: DATE OF SERVICE: 01/01/2019 This is a 78-year-old female who we saw yesterday in consultation for right-sided pneumonia. She sees a primary care physician up in [facility]. She came in with nonspecific complains of nausea, vomiting, decreased appetite, fever. She was found to have patchy infiltrates in the right lung. Doing much better today. We thought she could probably be treated with oral antibiotics. She was admitted to the hospital with Rocephin and Zithromax. She is feeling much better today. In addition to pneumonia, she has a history of chronic atrial fibrillation, currently on Xarelto, previous history of tobacco dependence syndrome, valvular heart disease in the form of moderate mitral regurgitation, moderate tricuspid regurgitation and moderate pulmonary hypertension, hypertension, hyperlipidemia, diastolic heart failure, and diverticular disease. Anyway, the patient is doing much better. Much less short of breath. No fever or chills. No chest pain or chest discomfort appreciated. PHYSICAL EXAMINATION: Current vital signs are reviewed. Temperature 98.8, heart rate 76, respiratory rate 18, blood pressure 164/84 mean 110, room air saturation 98%. He appears in no acute distress. HEENT: Examination is grossly unremarkable. Mucous membranes are moist. No oral lesions. NECK: Supple. Full range of motion. No adenopathy or thyromegaly. Neck veins are flat. CARDIOVASCULAR: Examination reveals regular rhythm and rate. Heart rate is 76 beats per minute. S1, S2 normal. No S3, S4, or murmur. LUNGS: Reveal a few scattered rhonchi. No wheezes or crackles. Breath sounds are mostly clear. Breath sounds equal bilaterally. ABDOMEN: Soft, bowel sounds are heard. EXTREMITIES: Intact. No cyanosis, clubbing, or edema. SKIN: Without rash. NEUROLOGIC: Examination is brief but nonfocal. No recent x-rays to report. LABS: Reviewed. White count 8.9, hemoglobin 10.5, hematocrit 31.5, platelet count [id number]. Troponins were negative x3. Microbiology is negative. Medications are reviewed. ASSESSMENT: 1. Patchy right-sided pneumonia, much improved clinically. 2. Chronic atrial fibrillation, currently on Xarelto. 3. Previous history of tobacco dependence, in remission for the last 23 years. 4. Generalized weakness, fatigue, improved. 5. Congestive heart failure, diastolic in nature, with associated valvular heart disease in the form of moderate mitral and tricuspid regurgitation and moderate pulmonary hypertension. 6. History of benign essential hypertension. 7. Hyperlipidemia. 8. History of diverticular disease. PLAN: The patient is doing well. The patient could be did potentially discharged home. Will leave that up to the primary. From the pulmonary standpoint, she potentially is ready for discharge. Other issues are probably pending. Will continue to follow. The patient's antibiotics could be switched to something orally such as Augmentin, Levaquin, Bactrim, Ceftin, Omnicef, Zithromax. Will continue to follow through discharge. No additional recommendations are made. Prognosis is thought to be generally good. MMODL / IJN: [id number] /
[2019-01-01 16:30] VITALS: BP 136/70; PULSE 97; RESP 16; TEMP 98.5
--- NOTE | 2019-01-01 22:21 | P.DS ---
Providers Date of admission: 12/30/18 18:53 Attending physician: Nilda aHas MD Consults: 12/31/18 07:00 Consult Physician Urgent Consulting Provider: Abelardo Muñoz Consult Reason/Comments: a fib Do you want consulting provider notified?: Yes 12/31/18 11:03 Consult Physician Urgent Consulting Provider: Livan Kemp Consult Reason/Comments: pna Do you want consulting provider notified?: Yes Primary care physician: Ellis Dominguez White Hospital Course: Diagnoses: upper Back pain/jaw pain, rule out cardiac causes Right lower lobe pneumonia Generalized weakness, improving Moderate mitral and tricuspid regurgitation with moderate pulmonary hypertension Chronic congestive heart failure atrial fibrillation with RVR. Hypertension Hyperlipidemia History of rheumatic fever with heart murmur Asthma, not in acute exacerbation Hospital course: This is a pleasant 78 years old female with past medical history of heart failure, atrial fibrillation on Xarelto, asthma, hyperlipidemia, hypertension, rheumatic fever with heart murmur. This is a patient was going to the faith and she was preparing food and suddenly she feels fatigued and she had to go to bed and sleep for 2-3 hours, after waking up she felt dizzy and weak while she's going to the restroom and she fell without hurting herself or head trauma. She denies chest pain however occasionally she has general pain, over the last week she was having pain in her back between shoulder blades, she also has dry cough but no dyspnea as per patient. No change in urine or bowel habits. Chest x- ray: Right infrahilar and basilar density suspicious for pneumonia with improvement on follow-up chest x-ray. Patient was treated with antibiotics with Rocephin and ceftriaxone, the patient showed interval improvement and she regained her strength, no significant respiratory symptoms. Patient has been evaluated by assistant sales director and care for discharge. Also patient was found with A. fib and RVR chancery clerk evaluated the patient recommended to continue with medical management, echo showed moderate MR, and TR, with moderate pulmonary hypertension. No heart rate is currently controlled and patient is already on Xarelto. Patient has been evaluated by occupational therapist who recommended home health care Patient was cleared for discharge by cardiology and pulmonary teams Problems and management plan were discussed with the patient and he verbalized understanding and acceptance Patient was found stable and can be discharged home however he needs follow-up as an outpatient. Patient was instructed to follow up with PCP within one week and patient agrees. Patient was instructed to follow up with her chancery clerk and PCP in one week and she agrees, patient states she lives in [place], [place] And she wants to follow-up with her doctors there. Patient was referred to outpt follow up with her pcp on 01/04, pulmonary service on 01/09 and cardiology service on 01/17. pt agrees to do follow up Gen: patient is a AAOx3, no distress CVS: S1-S2, RRR, no murmur Lungs: B/L CTA, no wheezing Abdomen: soft, no distention, no tenderness, positive bowel sounds Extremity: no leg edema or induration Time spent more than 35 minutes Patient Condition at Discharge: Stable Plan - Discharge Summary Discharge Rx Participant: No New Discharge Prescriptions: New Isosorbide Mononitrate ER [Imdur] 30 mg PO DAILY #30 tab.er.24h Cefdinir [Omnicef] 300 mg PO BID 5 Days #10 cap Continue Metoprolol Tartrate [Lopressor] 50 mg PO BID Furosemide [Lasix] 20 mg PO DAILY Escitalopram [Lexapro] 10 mg PO DAILY tab prednisoLONE ACETATE [Pred Forte 1%] 1 drop BOTH EYES BID Sulfacetamide 10% Ophth Soln [Bleph-10] 1 drops BOTH EYES BID Rivaroxaban [Xarelto] 20 mg PO DAILY Cyanocobalamin (Vitamin B-12) [Vitamin B-12] 1,000 mcg PO DAILY Gabapentin [Neurontin] 300 mg PO BID HYDROcodone/APAP 7.5-325MG [[place] 7.5-325] 1 tab PO BID Discontinued Meloxicam 15 mg PO DAILY Discharge Medication List Furosemide [Lasix] 20 mg PO DAILY 07/11/15 [History] Metoprolol Tartrate [Lopressor] 50 mg PO BID 07/11/15 [History] Escitalopram [Lexapro] 10 mg PO DAILY tab 11/06/15 [Rx] Cyanocobalamin (Vitamin B-12) [Vitamin B-12] 1,000 mcg PO DAILY 12/30/18 [Hi story] Gabapentin [Neurontin] 300 mg PO BID 12/30/18 [History] HYDROcodone/APAP 7.5-325MG [[place] 7.5-325] 1 tab PO BID 12/30/18 [History] Rivaroxaban [Xarelto] 20 mg PO DAILY 12/30/18 [History] Sulfacetamide 10% Ophth Soln [Bleph-10] 1 drops BOTH EYES BID 12/30/18 [History] prednisoLONE ACETATE [Pred Forte 1%] 1 drop BOTH EYES BID 12/30/18 [History] Cefdinir [Omnicef] 300 mg PO BID 5 Days #10 cap 01/01/19 [Rx] Isosorbide Mononitrate ER [Imdur] 30 mg PO DAILY #30 tab.er.24h 01/01/19 [Rx] Follow up Appointment(s)/Referral(s): Delio Beaver MD [STAFF PHYSICIAN] - 01/09/19 9:45 am (Monday -please arrive 15mins early for paperwork) Ellis Benson DO [Primary Care Provider] - 01/04/19 10:30 am (Monday) Marcial Vora MD [STAFF PHYSICIAN] - 01/17/19 3:45 pm () [facility], [NON-STAFF] - Patient Instructions/Handouts: A-fib (Atrial Fibrillation) (DC), Pneumonia (DC) Discharge Disposition: HOME SELF-CARE
[2019-01-02] MEDS ORDERED: CEFDINIR 300 MG CAP PO SCH (09:00)
[2019-01-02] MEDS ORDERED: ISOSORBIDE MONONITRATE ER 30 MG TAB.ER.24H PO SCH (09:00)
== END 2019-01-01 18:17 | disposition home or self-care (01) ==
LOC: EC 16:10 → 3SCARD 18:40 → INTOOBSV 18:40 → UNDOADMIN 18:53 → 3SCARD 18:53 → UNDODISIN 01-01 18:17
PROVIDERS: ADMIT Internal Medicine; ATTEND Internal Medicine
DX: I48.11 Longstanding persistent atrial fibrillation (principal); J18.9 Pneumonia, unspecified organism; I50.42 Chronic combined systolic (congestive) and diastolic (congestive) heart failure; E03.9 Hypothyroidism, unspecified; E78.5 Hyperlipidemia, unspecified; E86.0 Dehydration; R53.1 Weakness; G89.29 Other chronic pain; I08.1 Rheumatic disorders of both mitral and tricuspid valves; J45.909 Unspecified asthma, uncomplicated; K57.90 Diverticulosis of intestine, part unspecified, without perforation or abscess without bleeding; Z79.01 Long term (current) use of anticoagulants; Z79.1 Long term (current) use of non-steroidal anti-inflammatories (NSAID); Z79.899 Other long term (current) drug therapy; Z80.1 Family history of malignant neoplasm of trachea, bronchus and lung; Z83.3 Family history of diabetes mellitus; Z87.891 Personal history of nicotine dependence; Z90.710 Acquired absence of both cervix and uterus; Z90.49 Acquired absence of other specified parts of digestive tract; Z98.84 Bariatric surgery status; Z98.42 Cataract extraction status, left eye; Z98.41 Cataract extraction status, right eye; Z96.642 Presence of left artificial hip joint; Z98.1 Arthrodesis status
CPT/HCPCS: 96361; 96366 ×2; 96375; 96368; 96376; 96365; 99291; 36415; 94640 ×2; 93005; 93306; 97162; 97166; 80053; 82550; 83690; 83735; 84484 ×2; 85025 ×2; 81003; 87040; 71046 ×2; 70450; G0378 ×3; J0456; J0696 ×3

== ENCOUNTER 2019-04-18 21:12 | Observation (INO) | payer MEDICARE ==
--- NOTE | 2019-04-18 21:20 | ED ---
Altered Mental Status HPI - General Stated Complaint: Altered Mental Status Time Seen by Provider: 04/18/19 21:15 Source: RN notes reviewed, old records reviewed Mode of arrival: EMS Limitations: altered mental status - History of Present Illness Initial Comments: This is a 79-year-old female is a poor strength secondary medical condition clinical condition patient is brought to the ER by EMS after being decreased level responses in her car. Patient is unable to give history what she is here where she came from. Denies any complaints. Patient states she did see her doctor today but sure what happened at her doctor's office MD Complaint: altered mental status, weakness -: unknown Severity: moderate Consistency of Symptoms: waxing and waning, getting worse Context: history of similar presentation Associated Symptoms: fever/chills, weakness Treatments Prior to Arrival: IV fluid - Related Data Home Medications Medication Instructions Recorded Confirmed Furosemide [Lasix] 20 mg PO DAILY 07/11/15 12/30/18 Metoprolol Tartrate [Lopressor] 50 mg PO BID 07/11/15 12/30/18 Cyanocobalamin (Vitamin B-12) 1,000 mcg PO DAILY 12/30/18 12/30/18 [Vitamin B-12] Gabapentin [Neurontin] 300 mg PO BID 12/30/18 12/30/18 HYDROcodone/APAP 7.5-325MG [[place] 1 tab PO BID 12/30/18 12/30/18 7.5-325] Rivaroxaban [Xarelto] 20 mg PO DAILY 12/30/18 12/30/18 Sulfacetamide 10% Ophth Soln 1 drops BOTH EYES BID 12/30/18 12/30/18 [Bleph-10] prednisoLONE ACETATE [Pred Forte 1 drop BOTH EYES BID 12/30/18 12/30/18 1%] Previous Rx's Medication Instructions Recorded Escitalopram [Lexapro] 10 mg PO DAILY tab 11/06/15 Cefdinir [Omnicef] 300 mg PO BID 5 Days #10 cap 01/01/19 Isosorbide Mononitrate ER [Imdur] 30 mg PO DAILY #30 tab.er.24h 01/01/19 Allergies Allergy/AdvReac Type Severity Reaction Status Date / Time No Known Allergies Allergy Verified 12/30/18 17:55 Review of Systems ROS Statement: Those systems with pertinent positive or pertinent negative responses have been documented in the HPI. ROS Other: All systems not noted in ROS Statement are negative. Past Medical History Past Medical History: Atrial Fibrillation, Asthma, Heart Failure, GERD/Reflux, Hyperlipidemia, Hypertension, Pneumonia Additional Past Medical History / Comment(s): back pain, hiatal hernia, divetiucular disease, used to be on rx for hypothyroid-taken off over 12 years ago, anemia, sinus problmes, arhtirits, cyst on liver, murmur, rheumatic fever, broke lt hand(had sx) History of Any Multi-Drug Resistant Organisms: None Reported Past Surgical History: Appendectomy, Back Surgery, Bariatric Surgery, Bladder Surgery, Cholecystectomy, Heart Catheterization, Hysterectomy, Joint Replacement, Tubal Ligation Additional Past Surgical History / Comment(s): partial hysterectomt-still has ovaries,x2 nose sx, deviated septum and a revison sx.shawanda cataracts,x2 cervical fusion, colonoscopy IN 2002 OR 2004 HAD DEEPA EN Y THEN inc hernia repair AND tummy tuck, lt hip replacment, nerve stimulator, ulcers in bladder cauterized, lt hand sx-pt stated i think they took the hardware out" Past Anesthesia/Blood Transfusion Reactions: Postoperative Nausea & Vomiting (PONV) Additional Past Anesthesia/Blood Transfusion Reaction / Comment(s): blood transfuiosn 1971-no reaction to it. Past Psychological History: No Psychological Hx Reported Smoking Status: Former smoker Past Alcohol Use History: None Reported Additional Past Alcohol Use History / Comment(s): smoked for 18 years, 1ppd, quit 1996 Past Drug Use History: None Reported - Past Family History Father Family Medical History: Cancer Additional Family Medical History / Comment(s): lung cancer Brother(s) Family Medical History: Cancer Additional Family Medical History / Comment(s): lung cancer Mother Family Medical History: Diabetes Mellitus General Exam Limitations: altered mental status General appearance: alert, in no apparent distress Head exam: Present: atraumatic, normocephalic, normal inspection Eye exam: Present: normal appearance, PERRL, EOMI. Absent: scleral icterus, conjunctival injection, periorbital swelling ENT exam: Present: normal exam, mucous membranes dry Neck exam: Present: normal inspection. Absent: tenderness, meningismus, lymphadenopathy Respiratory exam: Present: normal lung sounds bilaterally. Absent: respiratory distress, wheezes, rales, rhonchi, stridor Cardiovascular Exam: Present: tachycardia, irregular rhythm, normal heart nicolas nds. Absent: systolic murmur, diastolic murmur, rubs, gallop, clicks GI/Abdominal exam: Present: soft, normal bowel sounds. Absent: distended, tenderness, guarding, rebound, rigid Extremities exam: Present: normal inspection, full ROM, normal capillary refill. Absent: tenderness, pedal edema, joint swelling, calf tenderness Back exam: Present: normal inspection Neurological exam: Present: alert, oriented X3, CN II-XII intact Psychiatric exam: Present: normal affect, normal mood Skin exam: Present: warm, dry, intact, normal color. Absent: rash Course Vital Signs 04/18/19 04/18/19 04/18/19 21:14 21:29 21:44 Temperature 101.9 F H 101.9 F H 101.8 F H Pulse Rate 128 H 115 H 117 H Respiratory 18 18 18 Rate Blood Pressure 156/85 138/87 151/76 O2 Sat by Pulse 97 98 97 Oximetry 04/18/19 04/18/19 21:59 22:14 Temperature 101 F H 100.1 F H Pulse Rate 112 H 111 H Respiratory 18 18 Rate Blood Pressure 146/85 136/81 O2 Sat by Pulse 96 96 Oximetry Medical Decision Making - Medical Decision Making 79 female. Urinary tract infection as a found with altered mental status and some somnolence per family brought in by EMS patient does have UTI dehydration here will be admitted for IV antibiotics and rehydration - Lab Data Result diagrams: 04/18/19 22:07 04/18/19 22:07 Lab Results 04/18/19 04/18/19 04/18/19 Range/Units 21:25 22:02 22:05 WBC (3.8-10.6) k/uL RBC (3.80-5.40) m/uL Hgb (11.4-16.0) gm/dL Hct (34.0-46.0) % MCV (80.0-100.0) fL MCH (25.0-35.0) pg MCHC (31.0-37.0) g/dL RDW (11.5-15.5) % Plt Count (150-450) k/uL Neutrophils % % Lymphocytes % % Monocytes % % Eosinophils % % Basophils % % Neutrophils # (1.3-7.7) k/uL Lymphocytes # (1.0-4.8) k/uL Monocytes # (0-1.0) k/uL Eosinophils # (0-0.7) k/uL Basophils # (0-0.2) k/uL PT (9.0-12.0) sec INR (<1.2) APTT (22.0-30.0) sec Sodium (137-145) mmol/L Potassium (3.5-5.1) mmol/L Chloride (98-107) mmol/L Carbon Dioxide (22-30) mmol/L Anion Gap mmol/L BUN (7-17) mg/dL Creatinine (0.52-1.04) mg/dL Est GFR (CKD-EPI)AfAm (>60 ml/min/1.73 sqM) Est GFR (CKD-EPI)NonAf (>60 ml/min/1.73 sqM) Glucose (74-99) mg/dL POC Glucose (mg/dL) 108 H (75-99) mg/dL POC Glu Medical Transport Specialist ID Redd Watson Plasma Lactic Acid Omi (0.7-2.0) mmol/L Calcium (8.4-10.2) mg/dL Total Bilirubin (0.2-1.3) mg/dL AST (14-36) U/L ALT (4-34) U/L Alkaline Phosphatase (38-126) U/L Ammonia (<30) umol/L Troponin I (0.000-0.034) ng/mL Total Protein (6.3-8.2) g/dL Albumin (3.5-5.0) g/dL Urine Color Yellow Urine Appearance Cloudy H (Clear) Urine pH 6.5 (5.0-8.0) Ur Specific [place] 1.013 (1.001-1.035) Urine Protein Trace H (Negative) Urine Glucose (UA) Negative (Negative) Urine Ketones Negative (Negative) Urine Blood Small H (Negative) Urine Nitrite Negative (Negative) Urine Bilirubin Negative (Negative) Urine Urobilinogen <2.0 (<2.0) mg/dL Ur Leukocyte Esterase Large H (Negative) Urine RBC 47 H (0-5) /hpf Urine WBC >182 H (0-5) /hpf Urine WBC Clumps Many H (None) /hpf Urine Bacteria Moderate H (None) /hpf Hyaline Casts 3 H (0-2) /lpf Urine Mucus Rare H (None) /hpf Urine Yeast (Budding) Few H (None) /hpf Urine Opiates Screen Detected H (NotDetected) Ur Oxycodone Screen Not Detected (NotDetected) Urine Methadone Screen Not Detected (NotDetected) Ur Propoxyphene Screen Not Detected (NotDetected) Ur Barbiturates Screen Not Detected (NotDetected) U Tricyclic Antidepress Not Detected (NotDetected) Ur Phencyclidine Scrn Not Detected (NotDetected) Ur Amphetamines Screen Not Detected (NotDetected) U Methamphetamines Scrn Not Detected (NotDetected) U Benzodiazepines Scrn Not Detected (NotDetected) Urine Cocaine Screen Not Detected (NotDetected) U Marijuana (THC) Screen Not Detected (NotDetected) Influenza Type A RNA Not Detected (Not Detectd) Influenza Type B (PCR) Not Detected (Not Detectd) 04/18/19 04/18/19 04/18/19 Range/Units 22:07 22:07 22:07 WBC 10.1 (3.8-10.6) k/uL RBC 3.79 L (3.80-5.40) m/uL Hgb 11.2 L (11.4-16.0) gm/dL Hct 35.1 (34.0-46.0) % MCV 92.5 (80.0-100.0) fL MCH 29.5 (25.0-35.0) pg MCHC 31.9 (31.0-37.0) g/dL RDW 14.2 (11.5-15.5) % Plt Count 210 (150-450) k/uL Neutrophils % 86 % Lymphocytes % 8 % Monocytes % 3 % Eosinophils % 2 % Basophils % 0 % Neutrophils # 8.6 H (1.3-7.7) k/uL Lymphocytes # 0.8 L (1.0-4.8) k/uL Monocytes # 0.3 (0-1.0) k/uL Eosinophils # 0.2 (0-0.7) k/uL Basophils # 0.0 (0-0.2) k/uL PT 14.9 H (9.0-12.0) sec INR 1.5 H (<1.2) APTT 36.1 H (22.0-30.0) sec Sodium 132 L (137-145) mmol/L Potassium 4.5 (3.5-5.1) mmol/L Chloride 99 (98-107) mmol/L Carbon Dioxide 24 (22-30) mmol/L Anion Gap 9 mmol/L BUN 17 (7-17) mg/dL Creatinine 0.74 (0.52-1.04) mg/dL Est GFR (CKD-EPI)AfAm 90 (>60 ml/min/1.73 sqM) Est GFR (CKD-EPI)NonAf 78 (>60 ml/min/1.73 sqM) Glucose 97 (74-99) mg/dL POC Glucose (mg/dL) (75-99) mg/dL POC Glu Medical Transport Specialist ID Plasma Lactic Acid Omi (0.7-2.0) mmol/L Calcium 8.0 L (8.4-10.2) mg/dL Total Bilirubin 0.8 (0.2-1.3) mg/dL AST 36 (14-36) U/L ALT 11 (4-34) U/L Alkaline Phosphatase 98 (38-126) U/L Ammonia (<30) umol/L Troponin I (0.000-0.034) ng/mL Total Protein 6.4 (6.3-8.2) g/dL Albumin 3.3 L (3.5-5.0) g/dL Urine Color Urine Appearance (Clear) Urine pH (5.0-8.0) Ur Specific [place] (1.001-1.035) Urine Protein (Negative) Urine Glucose (UA) (Negative) Urine Ketones (Negative) Urine Blood (Negative) Urine Nitrite (Negative) Urine Bilirubin (Negative) Urine Urobilinogen (<2.0) mg/dL Ur Leukocyte Esterase (Negative) Urine RBC (0-5) /hpf Urine WBC (0-5) /hpf Urine WBC Clumps (None) /hpf Urine Bacteria (None) /hpf Hyaline Casts (0-2) /lpf Urine Mucus (None) /hpf Urine Yeast (Budding) (None) /hpf Urine Opiates Screen (NotDetected) Ur Oxycodone Screen (NotDetected) Urine Methadone Screen (NotDetected) Ur Propoxyphene Screen (NotDetected) Ur Barbiturates Screen (NotDetected) U Tricyclic Antidepress (NotDetected) Ur Phencyclidine Scrn (NotDetected) Ur Amphetamines Screen (NotDetected) U Methamphetamines Scrn (NotDetected) U Benzodiazepines Scrn (NotDetected) Urine Cocaine Screen (NotDetected) U Marijuana (THC) Screen (NotDetected) Influenza Type A RNA (Not Detectd) Influenza Type B (PCR) (Not Detectd) 04/18/19 04/18/19 Range/Units 22:07 22:07 WBC (3.8-10.6) k/uL RBC (3.80-5.40) m/uL Hgb (11.4-16.0) gm/dL Hct (34.0-46.0) % MCV (80.0-100.0) fL MCH (25.0-35.0) pg MCHC (31.0-37.0) g/dL RDW (11.5-15.5) % Plt Count (150-450) k/uL Neutrophils % % Lymphocytes % % Monocytes % % Eosinophils % % Basophils % % Neutrophils # (1.3-7.7) k/uL Lymphocytes # (1.0-4.8) k/uL Monocytes # (0-1.0) k/uL Eosinophils # (0-0.7) k/uL Basophils # (0-0.2) k/uL PT (9.0-12.0) sec INR (<1.2) APTT (22.0-30.0) sec Sodium (137-145) mmol/L Potassium (3.5-5.1) mmol/L Chloride (98-107) mmol/L Carbon Dioxide (22-30) mmol/L Anion Gap mmol/L BUN (7-17) mg/dL Creatinine (0.52-1.04) mg/dL Est GFR (CKD-EPI)AfAm (>60 ml/min/1.73 sqM) Est GFR (CKD-EPI)NonAf (>60 ml/min/1.73 sqM) Glucose (74-99) mg/dL POC Glucose (mg/dL) (75-99) mg/dL POC Glu Medical Transport Specialist ID Plasma Lactic Acid Omi 1.4 (0.7-2.0) mmol/L Calcium (8.4-10.2) mg/dL Total Bilirubin (0.2-1.3) mg/dL AST (14-36) U/L ALT (4-34) U/L Alkaline Phosphatase (38-126) U/L Ammonia 13 (<30) umol/L Troponin I <0.012 (0.000-0.034) ng/mL Total Protein (6.3-8.2) g/dL Albumin (3.5-5.0) g/dL Urine Color Urine Appearance (Clear) Urine pH (5.0-8.0) Ur Specific [place] (1.001-1.035) Urine Protein (Negative) Urine Glucose (UA) (Negative) Urine Ketones (Negative) Urine Blood (Negative) Urine Nitrite (Negative) Urine Bilirubin (Negative) Urine Urobilinogen (<2.0) mg/dL Ur Leukocyte Esterase (Negative) Urine RBC (0-5) /hpf Urine WBC (0-5) /hpf Urine WBC Clumps (None) /hpf Urine Bacteria (None) /hpf Hyaline Casts (0-2) /lpf Urine Mucus (None) /hpf Urine Yeast (Budding) (None) /hpf Urine Opiates Screen (NotDetected) Ur Oxycodone Screen (NotDetected) Urine Methadone Screen (NotDetected) Ur Propoxyphene Screen (NotDetected) Ur Barbiturates Screen (NotDetected) U Tricyclic Antidepress (NotDetected) Ur Phencyclidine Scrn (NotDetected) Ur Amphetamines Screen (NotDetected) U Methamphetamines Scrn (NotDetected) U Benzodiazepines Scrn (NotDetected) Urine Cocaine Screen (NotDetected) U Marijuana (THC) Screen (NotDetected) Influenza Type A RNA (Not Detectd) Influenza Type B (PCR) (Not Detectd) - EKG Data -: EKG Interpreted by Me (EKG shows A. fib with RVR of 119, QRS 68, QTC 379) - Radiology Data Radiology results: report reviewed (Chest x-ray CT brain are negative for acute disease), image reviewed Disposition Clinical Impression: Altered mental status, Weakness, Dehydration, UTI (urinary tract infection) Disposition: ADMITTED IP TO THIS HOSP Condition: Fair Is patient prescribed a controlled substance at d/c from ED?: No Referrals: Ellis Benson DO [Primary Care Provider] - 1-2 days
[2019-04-18] MEDS ORDERED: ACETAMINOPHEN TAB 500 MG TAB PO STA (21:41)
[2019-04-18] MEDS ORDERED: SODIUM CHLORIDE 0.9% 1,000 ML IV ONE ×2 (21:41)
[2019-04-18] MEDS ORDERED: IBUPROFEN 600 MG TAB PO STA (21:41)
[2019-04-18 22:04] LABS: Glucose,Whole Blood 108 mg/dL (75-99)
[2019-04-18] MEDS ORDERED: DILTIAZEM 5 MG/ML 10 ML VIAL IVP STA (22:04)
[2019-04-18 22:19] LABS: Appearance,Urine Cloudy (Clear); Bacteria,Urine Moderate /hpf; Bilirubin,Urine Negative (Negative); Blood,Urine Small (Negative); Budding Yeast,Urine Few /hpf; Color,Urine Yellow; Glucose,Urine (UA) Negative (Negative); Hyaline Casts,Urine 3 /lpf (0-2); Ketones,Urine Negative (Negative); Leukocyte Esterase,Urine Large (Negative); Mucus,Urine Rare /hpf; Nitrite,Urine Negative (Negative); PH, Urine 6.5 (5.0-8.0); Protein,Urine Trace (Negative); RBC,Urine 47 /hpf (0-5); Specific Gravity,Urine 1.013 (1.001-1.035); Urobilinogen,Urine <2.0 mg/dL (<2.0); WBC,Urine >182 /hpf (0-5)
[2019-04-18 22:19] LABS: Basophils % (A) 0 %; Eosinophils # (A) 0.2 k/uL (0-0.7); Eosinophils % (A) 2 %; HCT 35.1 % (34.0-46.0); HGB 11.2 gm/dL (11.4-16.0); Lymphocytes # (A) 0.8 k/uL (1.0-4.8); Lymphocytes % (A) 8 %; MCH 29.5 pg (25.0-35.0); MCHC 31.9 g/dL (31.0-37.0); MCV 92.5 fL (80.0-100.0); Mean Platelet Volume 8.1; Monocytes # (A) 0.3 k/uL (0-1.0); Monocytes % (A) 3 %; Neutrophils # (A) 8.6 k/uL (1.3-7.7); Neutrophils % (A) 86 %; Platelet Count 210 k/uL (150-450); RBC 3.79 m/uL (3.80-5.40); RDW 14.2 % (11.5-15.5); WBC 10.1 k/uL (3.8-10.6)
[2019-04-18 22:20] LABS: Amphetamine Screen,Urine Not Detected (NotDetected); Barbiturate Screen,Urine Not Detected (NotDetected); Benzodiazepines Screen,Urine Not Detected (NotDetected); Cocaine Screen,Urine Not Detected (NotDetected); Methadone Screen, Urine Not Detected (NotDetected); Opiate Screen,Urine Detected (NotDetected); Oxycodone Screen, Urine Not Detected (NotDetected); Phencyclidine Screen,Urine Not Detected (NotDetected); Tricyclic Antidepressant,Urine Not Detected (NotDetected); Urn Cannabinoid Scrn Not Detected (NotDetected)
[2019-04-18 22:28] LABS: Albumin 3.3 g/dL (3.5-5.0); Potassium 4.5 mmol/L (3.5-5.1); Total Bilirubin 0.8 mg/dL (0.2-1.3); Total Protein 6.4 g/dL (6.3-8.2)
[2019-04-18 22:30] LABS: INR 1.5 (<1.2); Lactic Acid, Venous 1.4 mmol/L (0.7-2.0); Partial Thromboplastin Time 36.1 sec (22.0-30.0); Prothrombin Time 14.9 sec (9.0-12.0)
--- NOTE | 2019-04-18 22:42 | XR ---
EXAMINATION TYPE: XR chest 2V DATE OF EXAM: 04/18/2019 COMPARISON: 01/09/2019 HISTORY: Pneumonia TECHNIQUE: 2 views. FINDINGS: Heart is normal. Lungs are clear of infiltrate. There is no pleural effusion. Thoracic aorta is athe romatous. Costophrenic angles are clear. Bony thorax is intact. IMPRESSION: No active cardiopulmonary disease. There is probably some COPD. No change.
[2019-04-18] MEDS ORDERED: SODIUM CHLORIDE 0.9% 1,000 ML IV STA (22:50)
--- NOTE | 2019-04-18 22:50 | CT ---
EXAMINATION TYPE: CT brain wo con DATE OF EXAM: 04/18/2019 COMPARISON: 12/30/2018 HISTORY: ams CT DLP: 1074.4 mGycm Automated exposure control for dose reduction was used. Multiple axial sections were obtained of the brain without contrast. There is mild hypodensity in the periventricular white matter. There is no mass effect nor midline sh ift. There is no sign of intracranial hemorrhage. There is mild cerebral atrophy. Calvarium is intact . There is sclerosis and opacification left maxillary sinus. IMPRESSION: Cerebral atrophy and mild chronic small vessel ischemia. No acute intracranial abnormality. No change .
[2019-04-19] MEDS ORDERED: ACETAMINOPHEN TAB 325 MG TAB PO PRN (00:23)
[2019-04-19] MEDS: METOPROLOL TARTRATE 50 MG TAB PO SCH ×3 (00:41→20:01)
[2019-04-19] MEDS: traZODone HCL 50 MG TAB PO SCH ×2 (00:42→20:01)
[2019-04-19] MEDS: HYDROcodone/APAP 7.5-325MG 1 EACH TAB PO SCH ×3 (00:43→20:01)
[2019-04-19] MEDS: SULFAMETHOX-TMP 800-160MG 1 EACH TAB PO SCH ×3 (00:44→20:01)
[2019-04-19] MEDS ORDERED: SODIUM CHLORIDE 0.9% 1,000 ML IV SCH (02:15)
[2019-04-19] MEDS: FERROUS SULFATE 325 MG TAB PO SCH (07:57)
[2019-04-19] MEDS: MELOXICAM 7.5 MG TAB PO SCH (07:57)
[2019-04-19] MEDS: RIVAROXABAN 20 MG TAB PO SCH (07:57)
[2019-04-19] MEDS: CYANOCOBALAMIN 500 MCG TAB PO SCH (07:57)
[2019-04-19] MEDS: ESCITALOPRAM 10 MG TAB PO SCH (07:58)
[2019-04-19] MEDS ORDERED: GABAPENTIN 300 MG CAP PO SCH (09:00)
[2019-04-19] MEDS ORDERED: FUROSEMIDE 20 MG TAB PO SCH (09:00)
--- NOTE | 2019-04-19 17:39 | P.HPIM ---
History of Present Illness H&P Date: 04/19/19 Chief Complaint: passed out History of presenting complaint: This is a pleasant 79-year-old patient of Dr. Cornell. Chronic stable medical conditions include asthma, GERD, hyperlipidemia, hypertension, chronic low back pain, had landed, diverticulosis anemia. Patient had driven over to her daughter late afternoon after seeing Dr. Cornell in the afternoon for a doctor's appointment. Patient will back to her house and pulled into the driveway. Nexium she remembers waking up in the hospital with the IV stick. Patient's granddaughter had come out in the driveway and found the patient unconscious inside the car. 911 was called. Patient denies any chest pain palpitation. Patient does remember having urinary symptoms with frequency dysuria or abdominal discomfort. Patient on arrival here was found to be septic with the fever tachycardia. Started antibiotics and fluids. This morning patient's feeling better. One of the daughters at the bedside. Procardia symptoms. No focal neurological symptoms. No seizure activity. Review of systems: GEN.: Weak tired febrile EYES: None HEENT: None NECK: None RESPIRATORY: None CARDIOVASCULAR: None GASTROINTESTINAL: None GENITOURINARY: As above] MUSCULOSKELETAL: Chronic joint pains LYMPHATICS: None HEMATOLOGICAL: None PSYCHIATRY: None NEUROLOGICAL: No focal Past medical history to include: Atrial flutter fibrillation, asthma, GERD, hyperlipidemia, hypertension, low back pain, hiatal hernia, diverticular disease, anemia, questionable CHF Social history: Lives with her son, [id number], granddaughter. Smoked a pack a day for 18 years stopped in 1996. No alcohol. Physical examination: VITAL SIGNS: 101.9, 128, 18, 156/85, 97% on room air GENERAL: BMI 24.4, sitting up in bed, awake a bit tired]. EYES: Pupils equal. Conjunctiva normal. HEENT: External appearance of nose and ears normal, oral cavity grossly normal. NECK: JVD not raised; masses not palpable. HEART: First and second heart sounds are normal; no edema. LUNGS: Respiratory rate normal; decreased breath sounds. ABDOMEN: Soft, nontender, liver spleen not palpable, no masses palpable. PSYCH: Alert and oriented x3; mood and affect normal. MUSCULAR skeletal: Evidence of OA especially in the hands NEUROLOGICAL: Cranial nerves grossly intact; no facial asymmetry, power and sensation grossly intact. LYMPHATICS: No lymph nodes palpable in the axilla and neck INVESTIGATIONS, reviewed in the clinical context: White count 10.1 hemoglobin 11.2 platelets 210 potassium 4.5 creatinine 0.74 UA positive for leukoesterase, WBC, bacteria Urine drug screen positive for opiates Assessment: -This patient was found unconscious in her driveway. Urinary tract infection symptoms prior to the presentation and found to be septic in the ER. Patient's admitting diagnoses acute metabolic/toxic encephalopathy. -Acute UTI with cystitis, causing severe sepsis -Hyperlipidemia -Essential hypertension -GERD -Hiatal hernia -Colonic diverticular disease-asymptomatic -Primary osteoarthritis Plan: Care was discussed at length with the patient daughter the bedside. IV fluids. Also during IV ceftriaxone. Patient clinically feeling better. Repeat labs in the morning. Urine cultures pending. Lovenox for DVT prophylaxis. Past Medical History Past Medical History: Atrial Fibrillation, Asthma, Heart Failure, GERD/Reflux, Hyperlipidemia, Hypertension, Pneumonia Additional Past Medical History / Comment(s): back pain, hiatal hernia, diverticular disease, used to be on rx for hypothyroid-taken off years ago, anemia, sinus problems, arthritis, cyst on liver, heart murmur, rheumatic fever, broke lt hand(had sx) History of Any Multi-Drug Resistant Organisms: None Reported Past Surgical History: Appendectomy, Back Surgery, Bariatric Surgery, Bladder Surgery, Cholecystectomy, Heart Catheterization, Hysterectomy, Joint Replacement, Tubal Ligation Additional Past Surgical History / Comment(s): partial hysterectomy-still has ovaries, x2 nose sx, deviated septum and a revison sx. shawanda cataracts, x2 cervical fusion, colonoscopy IN 2002 OR 2004 HAD DEEPA EN Y, tummy tuck, lt hip replacment, nerve stimulator, ulcers in bladder cauterized, lt hand sx Past Anesthesia/Blood Transfusion Reactions: Postoperative Nausea & Vomiting (PONV) Additional Past Anesthesia/Blood Transfusion Reaction / Comment(s): blood transfusion 1971-no reaction to it. Past Psychological History: No Psychological Hx Reported Smoking Status: Former smoker Past Alcohol Use History: None Reported Additional Past Alcohol Use History / Comment(s): smoked for 18 years, 1ppd, quit 1996 Past Drug Use History: Prescription Drug Abuse Additional Drug Use History / Comment(s): takes norco at home - Past Family History Father Family Medical History: Cancer Additional Family Medical History / Comment(s): lung cancer Brother(s) Family Medical History: Cancer Additional Family Medical History / Comment(s): lung cancer Mother Family Medical History: Diabetes Mellitus Medications and Allergies Home Medications Medication Instructions Recorded Confirmed Type Furosemide [Lasix] 20 mg PO DAILY 07/11/15 04/18/19 History Metoprolol Tartrate [Lopressor] 50 mg PO BID 07/11/15 04/18/19 History Cyanocobalamin (Vitamin B-12) 1,000 mcg PO DAILY 12/30/18 04/18/19 History [Vitamin B-12] Gabapentin [Neurontin] 300 mg PO Q48H 12/30/18 04/18/19 History HYDROcodone/APAP 7.5-325MG [[place] 1 tab PO BID 12/30/18 04/18/19 History 7.5-325] Rivaroxaban [Xarelto] 20 mg PO DAILY 12/30/18 04/18/19 History Escitalopram [Lexapro] 10 mg PO DAILY 04/18/19 04/18/19 History Ferrous Sulfate [Feosol] 325 mg PO DAILY 04/18/19 04/18/19 History Loperamide HCl [Imodium A-D] 2 - 4 mg PO QID PRN 04/18/19 04/18/19 History Meloxicam [Mobic] 15 mg PO DAILY 04/18/19 04/18/19 History Sulfamethox-Tmp 800-160Mg [Bactrim 1 tab PO BID 04/18/19 04/18/19 History DS 800-160 mg] traZODone HCL 50 mg PO HS 04/18/19 04/18/19 History Allergies Allergy/AdvReac Type Severity Reaction Status Date / Time No Known Allergies Allergy Verified 12/30/18 17:55 Physical Exam Vitals: Vital Signs Temp Pulse Pulse Pulse Resp BP BP 04/19/19 08:20 04/19/19 08:00 58 L 04/19/19 07:52 98.3 F 58 L 16 99/68 04/19/19 02:00 98.2 F 87 16 121/62 04/19/19 00:00 110 H 18 04/18/19 23:06 99.0 F 112 H 18 136/71 04/18/19 22:14 100.1 F H 111 H 18 136/81 04/18/19 21:59 101 F H 112 H 18 146/85 04/18/19 21:44 101.8 F H 117 H 18 151/76 04/18/19 21:29 101.9 F H 115 H 18 138/87 04/18/19 21:14 101.9 F H 128 H 18 156/85 Pulse Ox 04/19/19 08:20 95 04/19/19 08:00 04/19/19 07:52 97 04/19/19 02:00 97 04/19/19 00:00 04/18/19 23:06 97 04/18/19 22:14 96 04/18/19 21:59 96 04/18/19 21:44 97 04/18/19 21:29 98 04/18/19 21:14 97 Intake and Output 04/18/19 04/19/19 04/19/19 22:59 06:59 14:59 Intake Total 180 Output Total 50 Balance -50 180 Intake: Oral 180 Output: Urine 50 Other: Voiding Method Bedside Commode Bedside Commode Diaper Diaper # Voids 4 Weight 80.739 kg 64.5 kg Results CBC & Chem 7: 04/18/19 22:07 04/18/19 22:07 Labs: Abnormal Lab Results - Last 24 Hours (Table) 04/18/19 04/18/19 04/18/19 Range/Units 21:25 22:02 22:07 RBC 3.79 L (3.80-5.40) m/uL Hgb 11.2 L (11.4-16.0) gm/dL Neutrophils # 8.6 H (1.3-7.7) k/uL Lymphocytes # 0.8 L (1.0-4.8) k/uL PT (9.0-12.0) sec INR (<1.2) APTT (22.0-30.0) sec Sodium (137-145) mmol/L POC Glucose (mg/dL) 108 H (75-99) mg/dL Calcium (8.4-10.2) mg/dL Albumin (3.5-5.0) g/dL Urine Appearance Cloudy H (Clear) Urine Protein Trace H (Negative) Urine Blood Small H (Negative) Ur Leukocyte Esterase Large H (Negative) Urine RBC 47 H (0-5) /hpf Urine WBC >182 H (0-5) /hpf Urine WBC Clumps Many H (None) /hpf Urine Bacteria Moderate H (None) /hpf Hyaline Casts 3 H (0-2) /lpf Urine Mucus Rare H (None) /hpf Urine Yeast (Budding) Few H (None) /hpf Urine Opiates Screen Detected H (NotDetected) 04/18/19 04/18/19 Range/Units 22:07 22:07 RBC (3.80-5.40) m/uL Hgb (11.4-16.0) gm/dL Neutrophils # (1.3-7.7) k/uL Lymphocytes # (1.0-4.8) k/uL PT 14.9 H (9.0-12.0) sec INR 1.5 H (<1.2) APTT 36.1 H (22.0-30.0) sec Sodium 132 L (137-145) mmol/L POC Glucose (mg/dL) (75-99) mg/dL Calcium 8.0 L (8.4-10.2) mg/dL Albumin 3.3 L (3.5-5.0) g/dL Urine Appearance (Clear) Urine Protein (Negative) Urine Blood (Negative) Ur Leukocyte Esterase (Negative) Urine RBC (0-5) /hpf Urine WBC (0-5) /hpf Urine WBC Clumps (None) /hpf Urine Bacteria (None) /hpf Hyaline Casts (0-2) /lpf Urine Mucus (None) /hpf Urine Yeast (Budding) (None) /hpf Urine Opiates Screen (NotDetected)
[2019-04-19] MEDS: LACTATED RINGERS 1,000 ML IV SCH (19:08)
[2019-04-20] MEDS: LACTATED RINGERS 1,000 ML IV SCH (02:42)
[2019-04-20 07:41] LABS: HCT 28.9 % (34.0-46.0); MCH 30.6 pg (25.0-35.0); MCV 92.7 fL (80.0-100.0); Mean Platelet Volume 8.4; Platelet Count 188 k/uL (150-450); RBC 3.12 m/uL (3.80-5.40); RDW 14.4 % (11.5-15.5); WBC 5.9 k/uL (3.8-10.6)
[2019-04-20 07:45] LABS: HGB 9.5 gm/dL (11.4-16.0)
[2019-04-20 07:59] VITALS: BP 142/68; PULSE 95; RESP 16; TEMP 98.4
[2019-04-20] MEDS: CYANOCOBALAMIN 500 MCG TAB PO SCH (09:47)
[2019-04-20] MEDS: FERROUS SULFATE 325 MG TAB PO SCH (09:48)
[2019-04-20] MEDS: ESCITALOPRAM 10 MG TAB PO SCH (09:48)
[2019-04-20] MEDS: HYDROcodone/APAP 7.5-325MG 1 EACH TAB PO SCH (09:49)
[2019-04-20] MEDS: MELOXICAM 7.5 MG TAB PO SCH (09:51)
[2019-04-20] MEDS: METOPROLOL TARTRATE 50 MG TAB PO SCH (09:53)
[2019-04-20] MEDS: RIVAROXABAN 20 MG TAB PO SCH (09:54)
[2019-04-20] MEDS: SULFAMETHOX-TMP 800-160MG 1 EACH TAB PO SCH (09:54)
--- NOTE | 2019-04-20 21:25 | P.DS ---
Providers Date of admission: 04/18/19 22:52 Expected date of discharge: 04/20/19 Attending physician: Mike Moore Primary care physician: Ellis Benson [facility] Course: Chief Complaint: passed out History of presenting complaint: This is a pleasant 79-year-old patient of Dr. Cornell. Chronic stable medical conditions include asthma, GERD, hyperlipidemia, hypertension, chronic low back pain, had landed, diverticulosis anemia. Patient had driven over to her daughter late afternoon after seeing Dr. Cornell in the afternoon for a doctor's appointment. Patient will back to her house and pulled into the driveway. Nexium she remembers waking up in the hospital with the IV stick. Patient's granddaughter had come out in the driveway and found the patient unconscious inside the car. 911 was called. Patient denies any chest pain palpitation. Patient does remember having urinary symptoms with frequency dysuria or abdominal discomfort. Patient on arrival here was found to be septic with the fever tachycardia. Started antibiotics and fluids. This morning patient's feeling better. One of the daughters at the bedside. No cardiac symptoms. No focal neurological symptoms. No seizure activity. Admitted with-acute UTI from cystitis causing sepsis leading to metabolic encephalopathy leading to patient passing out. Treated with antibiotics IV fluids. Patient pulled back to her baseline. Today-back to baseline. Very keen to go home. During doing well. Physical examination: VITAL SIGNS: 98.4, 95, 16, 142/68, 97% on room air GENERAL: BMI 24.4, sitting up in bed, awake a bit tired]. EYES: Pupils equal. Conjunctiva normal. HEENT: External appearance of nose and ears normal, oral cavity grossly normal. NECK: JVD not raised; masses not palpable. HEART: First and second heart sounds are normal; no edema. LUNGS: Respiratory rate normal; decreased breath sounds. ABDOMEN: Soft, nontender, liver spleen not palpable, no masses palpable. PSYCH: Alert and oriented x3; mood and affect normal. MUSCULAR skeletal: Evidence of OA especially in the hands INVESTIGATIONS, reviewed in the clinical context: White count 5.9 hemoglobin 9.5 Previous testing White count 10.1 hemoglobin 11.2 platelets 210 potassium 4.5 creatinine 0.74 UA positive for leukoesterase, WBC, bacteria Urine drug screen positive for opiates Assessment: -acute metabolic/toxic encephalopathy. POA -Acute UTI with cystitis, causing severe sepsis, POA -Hyperlipidemia -Essential hypertension -GERD -Hiatal hernia -Colonic diverticular disease-asymptomatic -Primary osteoarthritis Disposition: Home Patient Condition at Discharge: Fair Plan - Discharge Summary Discharge Rx Participant: Yes New Discharge Prescriptions: New Cefuroxime Axetil [Ceftin] 500 mg PO BID 5 Days #10 tab Continue Metoprolol Tartrate [Lopressor] 50 mg PO BID Rivaroxaban [Xarelto] 20 mg PO DAILY Cyanocobalamin (Vitamin B-12) [Vitamin B-12] 1,000 mcg PO DAILY Gabapentin [Neurontin] 300 mg PO Q48H HYDROcodone/APAP 7.5-325MG [[place] 7.5-325] 1 tab PO BID Escitalopram [Lexapro] 10 mg PO DAILY Ferrous Sulfate [Iron (65 MG Elemental)] 325 mg PO DAILY Meloxicam [Mobic] 15 mg PO DAILY traZODone HCL 50 mg PO HS Loperamide HCl [Imodium A-D] 2 - 4 mg PO QID PRN PRN Reason: Diarrhea Discontinued Furosemide [Lasix] 20 mg PO DAILY Sulfamethox-Tmp 800-160Mg [Bactrim DS 800-160 mg] 1 tab PO BID Discharge Medication List Metoprolol Tartrate [Lopressor] 50 mg PO BID 07/11/15 [History] Cyanocobalamin (Vitamin B-12) [Vitamin B-12] 1,000 mcg PO DAILY 12/30/18 [History] Gabapentin [Neurontin] 300 mg PO Q48H 12/30/18 [History] HYDROcodone/APAP 7.5-325MG [[place] 7.5-325] 1 tab PO BID 12/30/18 [History] Rivaroxaban [Xarelto] 20 mg PO DAILY 12/30/18 [History] Escitalopram [Lexapro] 10 mg PO DAILY 04/18/19 [History] Ferrous Sulfate [Iron (65 MG Elemental)] 325 mg PO DAILY 04/18/19 [History] Loperamide HCl [Imodium A-D] 2 - 4 mg PO QID PRN 04/18/19 [History] Meloxicam [Mobic] 15 mg PO DAILY 04/18/19 [History] traZODone HCL 50 mg PO HS 04/18/19 [History] Cefuroxime Axetil [Ceftin] 500 mg PO BID 5 Days #10 tab 04/20/19 [Rx] Follow up Appointment(s)/Referral(s): Ellis Benson DO [Primary Care Provider] - 1-2 days (office closed at time of discharge. Please call to make appointment) Discharge Disposition: HOME SELF-CARE
== END 2019-04-20 13:20 | disposition home or self-care (01) ==
LOC: EC 21:12 → 4SSUR 22:52
PROVIDERS: ADMIT Hospitalist; ATTEND Hospitalist
DX: G92 Toxic encephalopathy (principal); N30.90 Cystitis, unspecified without hematuria; R65.20 Severe sepsis without septic shock; E78.5 Hyperlipidemia, unspecified; A41.9 Sepsis, unspecified organism; I50.9 Heart failure, unspecified; I11.0 Hypertensive heart disease with heart failure; K21.9 Gastro-esophageal reflux disease without esophagitis; E86.0 Dehydration; K44.9 Diaphragmatic hernia without obstruction or gangrene; K57.30 Diverticulosis of large intestine without perforation or abscess without bleeding; M19.91 Primary osteoarthritis, unspecified site; J45.909 Unspecified asthma, uncomplicated; I48.91 Unspecified atrial fibrillation; E03.9 Hypothyroidism, unspecified; D64.9 Anemia, unspecified; R01.1 Cardiac murmur, unspecified; I00 Rheumatic fever without heart involvement; Z87.01 Personal history of pneumonia (recurrent); M54.5 Low back pain; G89.29 Other chronic pain; K76.89 Other specified diseases of liver; G31.9 Degenerative disease of nervous system, unspecified; Z87.891 Personal history of nicotine dependence; Z80.1 Family history of malignant neoplasm of trachea, bronchus and lung; Z83.3 Family history of diabetes mellitus; Z79.899 Other long term (current) drug therapy; Z79.01 Long term (current) use of anticoagulants; Z79.1 Long term (current) use of non-steroidal anti-inflammatories (NSAID); Z79.891 Long term (current) use of opiate analgesic; Z90.711 Acquired absence of uterus with remaining cervical stump
CPT/HCPCS: 96361 ×2; 96366; 96365; 99285; 36415; 94760; 93005; 80053; 82140; 83605; 84484; 85025; 85027; 85610; 85730; 81001; 87040; 80306; 87086; 87077; 87186; 87502; 71046; 70450; G0378 ×3; J0696 ×3

== ENCOUNTER 2021-06-12 18:28 | Observation (INO) | payer MEDICARE ==
[2021-06-12] MEDS ORDERED: SODIUM CHLORIDE 0.9% 1,000 ML IV STA (18:38)
--- NOTE | 2021-06-12 18:41 | ED ---
General Adult HPI - General Stated complaint: syncopal episode Time Seen by Provider: 06/12/21 18:34 Source: patient, EMS, RN notes reviewed Mode of arrival: EMS Limitations: no limitations - History of Present Illness Initial comments: Patient is a pleasant 81-year-old female presenting to the emergency department following seizure episode. Event occurred just prior to arrival. Patient was making dinner. Patient suddenly felt weak and fell down. Patient does not believe she lost consciousness however family has concern that she may have. EMS had blood pressure of 63 systolic. Patient admits she was somewhat out of it at the time. Patient believes she did strike the back of her head however denies any discomfort. No neck pain. No back pain. No chest pain or dyspnea. No abdominal pain - Related Data Home Medications Medication Instructions Recorded Confirmed Metoprolol Tartrate [Lopressor] 50 mg PO BID 07/11/15 04/18/19 Cyanocobalamin (Vitamin B-12) 1,000 mcg PO DAILY 12/30/18 04/18/19 [Vitamin B-12] Gabapentin [Neurontin] 300 mg PO Q48H 12/30/18 04/18/19 HYDROcodone/APAP 7.5-325MG [[place] 1 tab PO BID 12/30/18 04/18/19 7.5-325] Rivaroxaban [Xarelto] 20 mg PO DAILY 12/30/18 04/18/19 Escitalopram [Lexapro] 10 mg PO DAILY 04/18/19 04/18/19 Ferrous Sulfate [Iron (65 MG 325 mg PO DAILY 04/18/19 04/18/19 Elemental)] Loperamide HCl [Imodium A-D] 2 - 4 mg PO QID PRN 04/18/19 04/18/19 Meloxicam [Mobic] 15 mg PO DAILY 04/18/19 04/18/19 traZODone HCL 50 mg PO HS 04/18/19 04/18/19 Previous Rx's Medication Instructions Recorded Cefuroxime Axetil [Ceftin] 500 mg PO BID 5 Days #10 tab 04/20/19 Allergies Allergy/AdvReac Type Severity Reaction Status Date / Time No Known Allergies Allergy Verified 12/30/18 17:55 Review of Systems ROS Statement: Those systems with pertinent positive or pertinent negative responses have been documented in the HPI. ROS Other: All systems not noted in ROS Statement are negative. Constitutional: Denies: fever Eyes: Denies: eye pain ENT: Denies: ear pain Respiratory: Denies: cough Cardiovascular: Denies: chest pain Endocrine: Denies: fatigue Gastrointestinal: Denies: abdominal pain Genitourinary: Denies: dysuria Musculoskeletal: Denies: back pain Skin: Denies: rash Neurological: Denies: headache, weakness, confusion Past Medical History Past Medical History: Atrial Fibrillation, Asthma, Heart Failure, GERD/Reflux, Hyperlipidemia, Hypertension, Pneumonia Additional Past Medical History / Comment(s): back pain, hiatal hernia, diverticular disease, used to be on rx for hypothyroid-taken off years ago, anemia, sinus problems, arthritis, cyst on liver, heart murmur, rheumatic fever, broke lt hand(had sx) History of Any Multi-Drug Resistant Organisms: None Reported Past Surgical History: Appendectomy, Back Surgery, Bariatric Surgery, Bladder Surgery, Cholecystectomy, Heart Catheterization, Hysterectomy, Joint Replac ement, Tubal Ligation Additional Past Surgical History / Comment(s): partial hysterectomy-still has ovaries, x2 nose sx, deviated septum and a revison sx. shawanda cataracts, x2 ce rvical fusion, colonoscopy IN 2002 OR 2004 HAD DEEPA EN Y, tummy tuck, lt hip replacment, nerve stimulator, ulcers in bladder cauterized, lt hand sx Past Anesthesia/Blood Transfusion Reactions: Postoperative Nausea & Vomiting (PONV) Additional Past Anesthesia/Blood Transfusion Reaction / Comment(s): blood transfusion 1971-no reaction to it. Past Psychological History: No Psychological Hx Reported Past Alcohol Use History: None Reported Additional Past Alcohol Use History / Comment(s): smoked for 18 years, 1ppd, quit 1996 Past Drug Use History: Prescription Drug Abuse Additional Drug Use History / Comment(s): takes norco at home - Past Family History Father Family Medical History: Cancer Additional Family Medical History / Comment(s): lung cancer Brother(s) Family Medical History: Cancer Additional Family Medical History / Comment(s): lung cancer Mother Family Medical History: Diabetes Mellitus General Exam Limitations: no limitations General appearance: alert, in no apparent distress Head exam: Present: normocephalic Eye exam: Present: normal appearance, PERRL, EOMI ENT exam: Present: normal oropharynx Neck exam: Present: normal inspection. Absent: tenderness Respiratory exam: Present: normal lung sounds bilaterally Cardiovascular Exam: Present: regular rate, irregular rhythm GI/Abdominal exam: Present: soft. Absent: tenderness, pulsatile mass Extremities exam: Present: normal inspection. Absent: pedal edema, calf tenderness Neurological exam: Present: alert, oriented X3, CN II-XII intact. Absent: motor sensory deficit Expanded Neurological exam: Present: protecting the airway Patient oriented to: Present: person, place, time Speech: Present: fluid speech Cranial nerves: EOM's Intact: Normal Motor strength exam: RUE: 5, LUE: 5, RLE: 5, LLE: 5 Eye Response: (4) open spontaneously Motor Response: (6) obeys commands Verbal Response: (5) oriented Psychiatric exam: Present: normal affect, normal mood Skin exam: Present: normal color Course Vital Signs 06/12/21 18:31 Temperature 97.6 F Pulse Rate 96 Respiratory 18 Rate Blood Pressure 140/77 O2 Sat by Pulse 96 Oximetry EKG Findings - EKG Comments: EKG Findings:: A. fib rate 96. QRS 70. QT 331. QTc 385. Left axis. Q waves V1. Artifact in V2. No acute ST change. Medical Decision Making - Medical Decision Making Patient reevaluated and resting comfortably in bed. Patient updated on results and plan. Case discussed with Dr. Ledezma, who will admit covering hospital observation call. - Lab Data Result diagrams: 06/12/21 18:52 06/12/21 18:52 Lab Results 06/12/21 06/12/21 06/12/21 Range/Units 18:52 18:52 18:52 WBC 4.3 (3.8-10.6) k/uL RBC 3.62 L (3.80-5.40) m/uL Hgb 11.0 L (11.4-16.0) gm/dL Hct 33.8 L (34.0-46.0) % MCV 93.6 (80.0-100.0) fL MCH 30.4 (25.0-35.0) pg MCHC 32.5 (31.0-37.0) g/dL RDW 14.6 (11.5-15.5) % Plt Count 225 (150-450) k/uL MPV 8.0 Neutrophils % 73 % Lymphocytes % 16 % Monocytes % 5 % Eosinophils % 3 % Basophils % 1 % Neutrophils # 3.2 (1.3-7.7) k/uL Lymphocytes # 0.7 L (1.0-4.8) k/uL Monocytes # 0.2 (0-1.0) k/uL Eosinophils # 0.1 (0-0.7) k/uL Basophils # 0.0 (0-0.2) k/uL PT 16.1 H (9.0-12.0) sec INR 1.6 H (<1.2) APTT 33.8 H (22.0-30.0) sec Sodium 131 L (137-145) mmol/L Potassium 4.3 (3.5-5.1) mmol/L Chloride 97 L (98-107) mmol/L Carbon Dioxide 27 (22-30) mmol/L Anion Gap 7 mmol/L BUN 18 H (7-17) mg/dL Creatinine 0.93 (0.52-1.04) mg/dL Est GFR (CKD-EPI)AfAm 67 (>60 ml/min/1.73 sqM) Est GFR (CKD-EPI)NonAf 58 (>60 ml/min/1.73 sqM) Glucose 98 (74-99) mg/dL Calcium 9.0 (8.4-10.2) mg/dL Magnesium 1.8 (1.6-2.3) mg/dL Total Bilirubin 0.6 (0.2-1.3) mg/dL AST 59 H (14-36) U/L ALT 23 (4-34) U/L Alkaline Phosphatase 89 (38-126) U/L Troponin I (0.000-0.034) ng/mL Total Protein 6.4 (6.3-8.2) g/dL Albumin 3.2 L (3.5-5.0) g/dL 06/12/21 Range/Units 18:52 WBC (3.8-10.6) k/uL RBC (3.80-5.40) m/uL Hgb (11.4-16.0) gm/dL Hct (34.0-46.0) % MCV (80.0-100.0) fL MCH (25.0-35.0) pg MCHC (31.0-37.0) g/dL RDW (11.5-15.5) % Plt Count (150-450) k/uL MPV Neutrophils % % Lymphocytes % % Monocytes % % Eosinophils % % Basophils % % Neutrophils # (1.3-7.7) k/uL Lymphocytes # (1.0-4.8) k/uL Monocytes # (0-1.0) k/uL Eosinophils # (0-0.7) k/uL Basophils # (0-0.2) k/uL PT (9.0-12.0) sec INR (<1.2) APTT (22.0-30.0) sec Sodium (137-145) mmol/L Potassium (3.5-5.1) mmol/L Chloride (98-107) mmol/L Carbon Dioxide (22-30) mmol/L Anion Gap mmol/L BUN (7-17) mg/dL Creatinine (0.52-1.04) mg/dL Est GFR (CKD-EPI)AfAm (>60 ml/min/1.73 sqM) Est GFR (CKD-EPI)NonAf (>60 ml/min/1.73 sqM) Glucose (74-99) mg/dL Calcium (8.4-10.2) mg/dL Magnesium (1.6-2.3) mg/dL Total Bilirubin (0.2-1.3) mg/dL AST (14-36) U/L ALT (4-34) U/L Alkaline Phosphatase (38-126) U/L Troponin I <0.012 (0.000-0.034) ng/mL Total Protein (6.3-8.2) g/dL Albumin (3.5-5.0) g/dL - Radiology Data Radiology results: report reviewed (CT shows no acute intercranial process. Sinus disease.), image reviewed (X-rays show no acute process) Disposition Clinical Impression: Syncope Disposition: ADMITTED IP TO THIS HOSP Is patient prescribed a controlled substance at d/c from ED?: No Referrals: Ellis Benson DO [Primary Care Provider] - 1-2 days Time of Disposition: 19:43
[2021-06-12 19:11] LABS: Basophils % (A) 1 %; Eosinophils # (A) 0.1 k/uL (0-0.7); Eosinophils % (A) 3 %; HCT 33.8 % (34.0-46.0); Lymphocytes # (A) 0.7 k/uL (1.0-4.8); Lymphocytes % (A) 16 %; MCH 30.4 pg (25.0-35.0); MCHC 32.5 g/dL (31.0-37.0); MCV 93.6 fL (80.0-100.0); Monocytes # (A) 0.2 k/uL (0-1.0); Monocytes % (A) 5 %; Neutrophils # (A) 3.2 k/uL (1.3-7.7); Neutrophils % (A) 73 %; Platelet Count 225 k/uL (150-450); RBC 3.62 m/uL (3.80-5.40); RDW 14.6 % (11.5-15.5); WBC 4.3 k/uL (3.8-10.6)
[2021-06-12 19:13] LABS: INR 1.6 (<1.2); Partial Thromboplastin Time 33.8 sec (22.0-30.0); Prothrombin Time 16.1 sec (9.0-12.0)
[2021-06-12 19:19] LABS: Albumin 3.2 g/dL (3.5-5.0); Magnesium 1.8 mg/dL (1.6-2.3); Potassium 4.3 mmol/L (3.5-5.1); Total Bilirubin 0.6 mg/dL (0.2-1.3); Total Protein 6.4 g/dL (6.3-8.2)
--- NOTE | 2021-06-12 19:38 | CT ---
EXAMINATION TYPE: CT brain wo con DATE OF EXAM: 06/12/2021 COMPARISON: 04/18/2019 HISTORY: pt passed out CT DLP: 1056.4 mGycm Automated exposure control for dose reduction was used. Images of the brain obtained without contrast. There is cerebral cortical atrophy. There is no mass effect nor midline shift. There is no sign of in tracranial hemorrhage. There is some hypodensity in the internal capsule bilaterally. Calvarium is in tact. Skull base is intact. There are fluid levels in the maxillary and sphenoid sinuses. IMPRESSION: Cerebral atrophy. Mild chronic small vessel ischemia. No acute intracranial abnormality. There is sin usitis which is new compared to old exam.
--- NOTE | 2021-06-12 19:39 | XR ---
EXAMINATION TYPE: XR chest 2V DATE OF EXAM: 06/12/2021 COMPARISON: 04/18/2019 HISTORY: Syncope TECHNIQUE: FINDINGS: There is no heart failure nor confluent pneumonic infiltrate. Costophrenic angles are clear . Heart size is fairly normal. There are no hilar masses. There are chest leads. IMPRESSION: No active cardiopulmonary disease. No change.
[2021-06-12] MEDS ORDERED: NALOXONE 0.4 MG/ML 1 ML VIAL IV PRN (20:07)
[2021-06-12 21:28] LABS: Appearance,Urine Cloudy (Clear); Bacteria,Urine Rare /hpf; Bilirubin,Urine Negative (Negative); Blood,Urine Negative (Negative); Budding Yeast,Urine Occasional /hpf; Color,Urine Yellow; Glucose,Urine (UA) Negative (Negative); Hyaline Casts,Urine 26 /lpf (0-2); Ketones,Urine Negative (Negative); Leukocyte Esterase,Urine Large (Negative); Mucus,Urine Rare /hpf; Nitrite,Urine Positive (Negative); Protein,Urine Negative (Negative); RBC,Urine 1 /hpf (0-5); Specific Gravity,Urine 1.013 (1.001-1.035); Squamous Epithelial Cell,Urine 1 /hpf (0-4); Urobilinogen,Urine <2.0 mg/dL (<2.0); WBC,Urine 94 /hpf (0-5)
[2021-06-13] MEDS ORDERED: ACETAMINOPHEN TAB 325 MG TAB PO PRN (02:06)
--- NOTE | 2021-06-13 02:19 | P.HPIM ---
History of Present Illness H&P Date: 06/12/21 Chief Complaint: fall 81 year old female with afib, hypertension patient sustained a fall today while preparing dinner, she claims to be in perfect health, until todays episode that came out of no where. she was preparing dinner and suddenly she felt like passing out, she is not sure if she lost consciousness, but if she did she thinks it was very brief. she felt her heart racing, and had to fall down and hit the back of her head. she could not get up but did not want to come to the hospital if it was not for the insistence of her family . she currently feeling fine, denies chest pain , trouble breathing, focal neuro deficits, denies any headache, changes in vision or hearing . denies any syncopal episodes in the past, no recent changes in her meds. she is feeling fine now. patient is on Xarelto for afib in the ED , workup showed no acute pathology in her CXR or brain CT, hyponatremia 1231, patient on lasix. EMS upon arrival to her place, noted a systolic blood pressure in the 60s Review of Systems Pertinent positives as noted in HPI. All other systems were reviewed and are negative Past Medical History Past Medical History: Atrial Fibrillation, Asthma, Heart Failure, GERD/Reflux, Hyperlipidemia, Hypertension, Pneumonia Additional Past Medical History / Comment(s): back pain, hiatal hernia, diverticular disease, used to be on rx for hypothyroid-taken off years ago, anemia, sinus problems, arthritis, cyst on liver, heart murmur, rheumatic fever, broke lt hand(had sx) History of Any Multi-Drug Resistant Organisms: None Reported Past Surgical History: Appendectomy, Back Surgery, Bariatric Surgery, Bladder Surgery, Cholecystectomy, Heart Catheterization, Hysterectomy, Joint Replacement, Tubal Ligation Additional Past Surgical History / Comment(s): partial hysterectomy-still has ovaries, x2 nose sx, deviated septum and a revison sx. shawanda cataracts, x2 cervical fusion, colonoscopy IN 2002 OR 2004 HAD DEEPA EN Y, tummy tuck, lt hip replacment, nerve stimulator, ulcers in bladder cauterized, lt hand sx Past Anesthesia/Blood Transfusion Reactions: No Reported Reaction Additional Past Anesthesia/Blood Transfusion Reaction / Comment(s): blood transfusion 1971-no reaction to it. Past Psychological History: No Psychological Hx Reported Smoking Status: Former smoker Past Alcohol Use History: None Reported Additional Past Alcohol Use History / Comment(s): smoked for 18 years, 1ppd, quit 1996 Past Drug Use History: None Reported Additional Drug Use History / Comment(s): takes norco at home - Past Family History Father Family Medical History: Cancer Additional Family Medical History / Comment(s): lung cancer Brother(s) Family Medical History: Cancer Additional Family Medical History / Comment(s): lung cancer Mother Family Medical History: Diabetes Mellitus Medications and Allergies Home Medications Medication Instructions Recorded Confirmed Type Metoprolol Tartrate [Lopressor] 50 mg PO BID 07/11/15 06/12/21 History HYDROcodone/APAP 7.5-325MG [[place] 1 tab PO BID 12/30/18 06/12/21 History 7.5-325] Rivaroxaban [Xarelto] 20 mg PO DAILY 12/30/18 06/12/21 History Meloxicam [Mobic] 15 mg PO DAILY 04/18/19 06/12/21 History Celecoxib [CeleBREX] 200 mg PO DAILY 06/12/21 06/12/21 History Cholecalciferol [Vitamin D3 (25 50 mcg PO DAILY 06/12/21 06/12/21 History Mcg = 1000 Iu)] Furosemide [Lasix] 20 mg PO DAILY 06/12/21 06/12/21 History Losartan Potassium 50 mg PO DAILY 06/12/21 06/12/21 History Vit C/Ascorb Sod/Multivit-Min 500 mg PO DAILY 06/12/21 06/12/21 History [Emergen-C 500 mg Chewable Tab] Zinc 50 mg PO DAILY 06/12/21 06/12/21 History Allergies Allergy/AdvReac Type Severity Reaction Status Date / Time No Known Allergies Allergy Verified 06/12/21 20:39 Physical Exam Vitals: Vital Signs Temp Pulse Pulse Resp BP BP Pulse Ox 06/12/21 21:50 97.9 F 96 17 132/70 96 06/12/21 21:15 13 06/12/21 20:20 102 H 13 161/76 98 06/12/21 20:10 125/62 06/12/21 20:00 92 20 126/74 06/12/21 19:50 95 24 126/74 06/12/21 19:40 90 21 122/75 06/12/21 19:10 135/81 06/12/21 18:50 90 12 140/77 95 06/12/21 18:31 97.6 F 96 18 140/77 96 Intake and Output 06/12/21 06/12/21 06/13/21 14:59 22:59 06:59 Other: Voiding Method Toilet # Voids 1 Weight 61.235 kg Constitutional: No acute distress, conversant, pleasant Eyes: Anicteric sclerae, moist conjunctiva, Pupils equal round reactive to light ENMT: NC/AT Oropharynx clear, no erythema, or exudates Neck: Supple, FROM, no masses, or JVD No carotid bruits No thyromegaly Lungs: Clear to auscultation Clear to percussion Normal respiratory effort, no accessory muscle use Cardiovascular: Heart regular in rate and rhythm, No murmurs, gallops, or rubs No peripheral edema Abdominal: Soft Nontender, no guarding, rebound or rigidity Abdomen moving with respiration Normoactive bowel sounds No hepatomegaly, No splenomegaly No palpable mass No abdominal wall hernia noted Skin: Normal temperature, tone, texture, turgor No induration No subcutaneous nodules No rash, lesions No ulcers Extremities: No digital cyanosis No clubbing Pedal pulses intact and symmetrical Radial pulses intact and symmetrical No calf tenderness Psychiatric: Alert and oriented to person, place and time Appropriate affect fair judgement Neuro Muscles Strength 4/5 in all 4 extremities Sensation to light touch grossly present throughout Cranial nerves II-XII grossly intact No focal sensory deficits Lymphatics: no palpable cervical or supraclavicular , or inguinal lymph nodes Results CBC & Chem 7: 06/12/21 18:52 06/12/21 18:52 Labs: Abnormal Lab Results - Last 24 Hours (Table) 06/12/21 06/12/21 06/12/21 Range/Units 18:52 18:52 18:52 RBC 3.62 L (3.80-5.40) m/uL Hgb 11.0 L (11.4-16.0) gm/dL Hct 33.8 L (34.0-46.0) % Lymphocytes # 0.7 L (1.0-4.8) k/uL PT 16.1 H (9.0-12.0) sec INR 1.6 H (<1.2) APTT 33.8 H (22.0-30.0) sec Sodium (137-145) mmol/L Chloride (98-107) mmol/L BUN (7-17) mg/dL AST (14-36) U/L Albumin (3.5-5.0) g/dL Urine Appearance Cloudy H (Clear) Urine Nitrite Positive H (Negative) Ur Leukocyte Esterase Large H (Negative) Urine WBC 94 H (0-5) /hpf Urine WBC Clumps Rare H (None) /hpf Urine Bacteria Rare H (None) /hpf Hyaline Casts 26 H (0-2) /lpf Urine Mucus Rare H (None) /hpf Urine Yeast (Budding) Occasional H (None) /hpf 06/12/21 Range/Units 18:52 RBC (3.80-5.40) m/uL Hgb (11.4-16.0) gm/dL Hct (34.0-46.0) % Lymphocytes # (1.0-4.8) k/uL PT (9.0-12.0) sec INR (<1.2) APTT (22.0-30.0) sec Sodium 131 L (137-145) mmol/L Chloride 97 L (98-107) mmol/L BUN 18 H (7-17) mg/dL AST 59 H (14-36) U/L Albumin 3.2 L (3.5-5.0) g/dL Urine Appearance (Clear) Urine Nitrite (Negative) Ur Leukocyte Esterase (Negative) Urine WBC (0-5) /hpf Urine WBC Clumps (None) /hpf Urine Bacteria (None) /hpf Hyaline Casts (0-2) /lpf Urine Mucus (None) /hpf Urine Yeast (Budding) (None) /hpf Thrombosis Risk Factor Assmnt - Choose All That Apply Each Risk Factor Represents 3 Points: Age 75 years or older Thrombosis Risk Factor Assessment Total Risk Factor Score: 3 Thrombosis Risk Factor Assessment Level: Moderate Risk Assessment and Plan Assessment: syncope monitor vital signs cardiac cath lab radiology technologist neuro checks fall precautions orthostatic vitals cardiology eval IVF hydration wtih saline CT brain no acute pathology CXr no acute pathology EKG chronic afib , no acute changes chronic condition s afib , on xarelto hypertension resume home cardiac meds full code dvt ppx on xarelto anticipated length of stay < 2 midnight s
[2021-06-13] MEDS: RIVAROXABAN 20 MG TAB PO SCH (08:38)
[2021-06-13] MEDS: LOSARTAN 50 MG TAB PO SCH (08:39)
[2021-06-13] MEDS: METOPROLOL TARTRATE 50 MG TAB PO SCH ×2 (08:39→20:17)
[2021-06-13 09:15] LABS: Basophils # (A) 0.03 X 10*3/uL (0.00-0.10); Basophils % (A) 0.6 %; Eosinophils # (A) 0.08 X 10*3/uL (0.04-0.35); Eosinophils % (A) 1.7 %; HCT 31.9 % (37.2-46.3); HGB 10.1 g/dL (12.0-15.0); Immature Grans, Automated 0.6 %; Lymphocytes # (A) 0.97 X 10*3/uL (0.90-5.00); MCHC 31.7 g/dL (32.0-37.0); MCV 91.7 fL (80.0-97.0); Mean Platelet Volume 10.6 fL (9.5-12.2); Monocytes # (A) 0.44 X 10*3/uL (0.20-1.00); Monocytes % (A) 9.5 %; NRBC Per 100 WBC 0 /100 WBCS (0.0-0.0); Neutrophils # (A) 3.07 X 10*3/uL (1.80-7.70); Neutrophils % (A) 66.6 %; Platelet Count 204 X 10*3/uL (140-440); RBC 3.48 X 10*6/uL (4.10-5.20); RDW 14.3 % (11.5-14.5); WBC 4.62 X 10*3/uL (4.50-10.00)
[2021-06-13 09:30] LABS: African American GFR (CKD) 94.2 (60.0-200.0); Albumin 3.3 g/dL (3.8-4.9); Albumin/Globulin Ratio 1.32 (1.60-3.17); BUN/Creat Ratio 17.86 Ratio (12.00-20.00); Blood Urea Nitrogen 12.5 mg/dL (9.0-27.0); Calcium 8.9 mg/dL (8.7-10.3); Globulin 2.5 g/dL (1.6-3.3); Non-African American GFR(CKD) 81.3 (60.0-200.0); Potassium 4.2 mmol/L (3.5-5.5); Total Bilirubin 0.6 mg/dL (0.30-1.20); Total Protein 5.8 g/dL (6.2-8.2)
[2021-06-13] MEDS: MELOXICAM 7.5 MG TAB PO SCH (10:55)
--- NOTE | 2021-06-13 11:15 | P.CRDCN ---
History of Present Illness History of present illness: 81-year-old lady with history of hypertension persistent atrial fibrillation who sees a advertising sales consultant in the care comes to Hospital complaining of syncope. Patient states that she was cooking dinner standing in one place for a long time suddenly felt weak in her lower extremities and went down. She did not have bladder bowel incontinence did not have seizure did not have any injury. She recovered spontaneously. When the EMS arrived apparently she was hypotensive and subsequently her blood pressures have improved 80 at this morning the blood pressures are elevated in the 170s. So far the cardiac workup is negative. She remains in atrial fibrillation without any episodes of tachycardia or bradycardia arrhythmias. Cardiac enzymes have been negative. I'm told by the nurse that she did not have any orthostatic changes. I advised the patient to undergo an echocardiogram to evaluate her LV function and to rule out wall motion abnormalities. If she has any evidence of wall mot ion of normalities I will consider performing a Lexiscan on her. There is no prior history of coronary artery disease or congestive heart failure Constitutional: Denies chills. Denies fever. Eyes: Denies blurred vision. Denies pain. Ears, nose, mouth and throat: Denies headache. Denies sore throat. Cardiovascular: Denies chest pain. Denies shortness of breath. Respiratory: Denies cough. Gastrointestinal: Denies abdominal pain. Denies diarrhea. Denies nausea. Denies vomiting. Musculoskeletal: Denies myalgias. Integumentary: Denies pruritus. Denies rash. Neurological: Denies numbness. Denies weakness. Significant for syncope Psychiatric: Denies anxiety. Denies depression. Endocrine: Denies fatigue. Denies weight change. Genitourinary: Denies burning, hematuria, frequency of urination. Hematological: No anemia or excess bleeding. General: The patient is awake and alert, in no distress, and does not appear acutely ill. Skin: Skin is warm and dry and no rashes or lesions are noted. Eye: Pupils are equal, round and reactive to light, extra-ocular movements are intact; there is normal conjunctiva bilaterally. Ears, nose, mouth and throat: There are moist mucous membranes and no oral lesions. Neck: The neck is supple, there is no tenderness or JVD. Cardiovascular: There is a regular rate and rhythm. Nor, rub or gallop is appreciated. Ejection systolic murmur in the aortic area Respiratory: Lungs are clear to auscultation, respirations are non-labored, breath sounds are equal. Gastrointestinal: Soft, non-distended, non-tender abdomen without masses or organomegaly noted. There is no rebound or guarding present. Bowel sounds are unremarkable. Back: There is no tenderness to palpation in the midline. There is no obvious deformity. Musculoskeletal: Normal ROM, no tenderness, There is no pedal edema. There is no calf tenderness or swelling. Extremities: No edema. Vascular: Femoral pulse is normal. Posterior tibial pulses are normal .Dorsalis pedis is palpable. Neurological: CN II-XII intact. There are no obvious motor or sensory deficits. Speech is normal. Psychiatric: Cooperative, appropriate mood & affect, normal judgment. Assessment and plan: Syncope rule out cardiac causes Persistent atrial fibrillation Hypertension 2-D echo in the morning further workup based on the findings Computed tomography scan of the brain did not reveal any acute pathology Past Medical History Past Medical History: Atrial Fibrillation, Asthma, Heart Failure, GERD/Reflux, Hyperlipidemia, Hypertension, Pneumonia Additional Past Medical History / Comment(s): back pain, hiatal hernia, dive rticular disease, used to be on rx for hypothyroid-taken off years ago, anemia, sinus problems, arthritis, cyst on liver, heart murmur, rheumatic fever, broke lt hand(had sx) History of Any Multi-Drug Resistant Organisms: None Reported Past Surgical History: Appendectomy, Back Surgery, Bariatric Surgery, Bladder Surgery, Cholecystectomy, Heart Catheterization, Hysterectomy, Joint Replacement, Tubal Ligation Additional Past Surgical History / Comment(s): partial hysterectomy-still has ovaries, x2 nose sx, deviated septum and a revison sx. shawanda cataracts, x2 cervical fusion, colonoscopy IN 2002 OR 2004 HAD DEEPA EN Y, tummy tuck, lt hip replacment, nerve stimulator, ulcers in bladder cauterized, lt hand sx Past Anesthesia/Blood Transfusion Reactions: No Reported Reaction Additional Past Anesthesia/Blood Transfusion Reaction / Comment(s): blood transfusion 1971-no reaction to it. Past Psychological History: No Psychological Hx Reported Smoking Status: Former smoker Past Alcohol Use History: None Reported Additional Past Alcohol Use History / Comment(s): smoked for 18 years, 1ppd, quit 1996 Past Drug Use History: None Reported Additional Drug Use History / Comment(s): takes norco at home - Past Family History Father Family Medical History: Cancer Additional Family Medical History / Comment(s): lung cancer Brother(s) Family Medical History: Cancer Additional Family Medical History / Comment(s): lung cancer Mother Family Medical History: Diabetes Mellitus Medications and Allergies Home Medications Medication Instructions Recorded Confirmed Type Metoprolol Tartrate [Lopressor] 50 mg PO BID 07/11/15 06/12/21 History HYDROcodone/APAP 7.5-325MG [[place] 1 tab PO BID 12/30/18 06/12/21 History 7.5-325] Rivaroxaban [Xarelto] 20 mg PO DAILY 12/30/18 06/12/21 History Meloxicam [Mobic] 15 mg PO DAILY 04/18/19 06/12/21 History Celecoxib [CeleBREX] 200 mg PO DAILY 06/12/21 06/12/21 History Cholecalciferol [Vitamin D3 (25 50 mcg PO DAILY 06/12/21 06/12/21 History Mcg = 1000 Iu)] Furosemide [Lasix] 20 mg PO DAILY 06/12/21 06/12/21 History Losartan Potassium 50 mg PO DAILY 06/12/21 06/12/21 History Vit C/Ascorb Sod/Multivit-Min 500 mg PO DAILY 06/12/21 06/12/21 History [Emergen-C 500 mg Chewable Tab] Zinc 50 mg PO DAILY 06/12/21 06/12/21 History Allergies Allergy/AdvReac Type Severity Reaction Status Date / Time No Known Allergies Allergy Verified 06/12/21 20:39 Physical Exam Vitals: Vital Signs Temp Pulse Pulse Pulse Pulse Pulse Resp 06/13/21 08:00 96 92 107 H 90 14 06/13/21 07:00 97.7 F 90 14 06/13/21 03:15 97.5 F L 92 107 H 84 17 06/13/21 02:00 96 06/12/21 21:50 97.9 F 96 17 06/12/21 21:15 13 06/12/21 20:20 102 H 13 06/12/21 20:10 06/12/21 20:00 92 20 06/12/21 19:50 95 24 06/12/21 19:40 90 21 06/12/21 19:10 06/12/21 18:50 90 12 06/12/21 18:31 97.6 F 96 18 BP BP BP BP BP Pulse Ox 06/13/21 08:00 06/13/21 07:00 174/89 98 06/13/21 03:15 171/78 166/78 153/70 96 06/13/21 02:00 06/12/21 21:50 132/70 96 06/12/21 21:15 06/12/21 20:20 161/76 98 06/12/21 20:10 125/62 06/12/21 20:00 126/74 06/12/21 19:50 126/74 06/12/21 19:40 122/75 06/12/21 19:10 135/81 06/12/21 18:50 140/77 95 06/12/21 18:31 140/77 96 Intake and Output 06/12/21 06/13/21 06/13/21 22:59 06:59 14:59 Intake Total 0 Balance 0 Intake: Oral 0 Other: Voiding Method Toilet Toilet # Voids 3 Weight 61.235 kg Results 06/13/21 06:00 06/13/21 06:00 Cardiac Enzymes 06/12/21 06/12/21 06/12/21 Range/Units 18:52 18:52 22:57 AST 59 H (14-36) U/L Troponin I <0.012 <0.012 (0.000-0.034) ng/mL 06/13/21 06/13/21 Range/Units 00:28 06:00 AST 44 H (14-36) U/L Troponin I <0.012 (0.000-0.034) ng/mL Coagulation 06/12/21 Range/Units 18:52 PT 16.1 H (9.0-12.0) sec APTT 33.8 H (22.0-30.0) sec CBC 06/12/21 06/13/21 Range/Units 18:52 06:00 WBC 4.3 4.62 (3.8-10.6) k/uL RBC 3.62 L 3.48 L (3.80-5.40) m/uL Hgb 11.0 L 10.1 L (11.4-16.0) gm/dL Hct 33.8 L 31.9 L (34.0-46.0) % Plt Count 225 204 (150-450) k/uL Comprehensive Metabolic Panel 06/12/21 06/13/21 Range/Units 18:52 06:00 Sodium 131 L 136 (137-145) mmol/L Potassium 4.3 4.2 (3.5-5.1) mmol/L Chloride 97 L 102 (98-107) mmol/L Carbon Dioxide 27 25.0 (22-30) mmol/L BUN 18 H 12.5 (7-17) mg/dL Creatinine 0.93 0.7 (0.52-1.04) mg/dL Glucose 98 90 (74-99) mg/dL Calcium 9.0 8.9 (8.4-10.2) mg/dL AST 59 H 44 H (14-36) U/L ALT 23 22 (4-34) U/L Alkaline Phosphatase 89 99 (38-126) U/L Total Protein 6.4 5.8 L (6.3-8.2) g/dL Albumin 3.2 L 3.3 L (3.5-5.0) g/dL Current Medications Generic Name Dose Route Start Last Admin Trade Name Freq PRN Reason Stop Dose Admin Acetaminophen 650 mg 06/13/21 02:06 Acetaminophen Tab 325 Mg Tab PO Q4HR PRN Fever and/ or Pain Losartan Potassium 50 mg 06/13/21 09:00 06/13/21 08:39 Losartan 50 Mg Tab PO 50 mg DAILY KELLY Administration Meloxicam 15 mg 06/13/21 10:04 06/13/21 10:55 Meloxicam 7.5 Mg Tab PO 15 mg DAILY KELLY Administration Metoprolol Tartrate 50 mg 06/13/21 09:00 06/13/21 08:39 Metoprolol Tartrate 50 Mg Tab PO 50 mg BID KELLY Administration Naloxone HCl 0.2 mg 06/12/21 20:07 Naloxone 0.4 Mg/Ml 1 Ml Vial IV Q2M PRN Opioid Reversal Rivaroxaban 20 mg 06/13/21 09:00 06/13/21 08:38 Rivaroxaban 20 Mg Tab PO 20 mg DAILY KELLY Administration Protocol Intake and Output 06/12/21 06/13/21 06/13/21 22:59 06:59 14:59 Intake Total 0 Balance 0 Intake: Oral 0 Other: Voiding Method Toilet Toilet # Voids 3 Weight 61.235 kg 06/13/21 06:00 06/13/21 06:00
[2021-06-13] MEDS ORDERED: ASPIRIN-ACET-CAFF 250-250-65MG 1 EACH TAB PO PRN (14:34)
--- NOTE | 2021-06-13 15:52 | P.PN ---
Subjective Progress Note Date: 06/13/21 Principal diagnosis: Syncope Patient was seen and examined. No acute events overnight. Patient reports no dizziness, chest pain, shortness of breath or palpitations. She has been able to ambulate to the washroom without presyncopal symptoms. She does complain of occipital headache and migraine which she associates with a pinched nerve in her neck. Objective - Vital Signs Vital signs: Vital Signs Temp 98.1 F 06/13/21 13:38 Pulse 90 06/13/21 14:00 Resp 16 06/13/21 14:00 BP 177/75 06/13/21 13:38 Pulse Ox 98 06/13/21 13:38 Intake & Output 06/12/21 06/13/21 06/13/21 18:59 06:59 18:59 Intake Total 0 118 Balance 0 118 Weight 61.235 kg 61.235 kg Intake: Oral 0 118 Other: Voiding Method Toilet Toilet # Voids 3 2 - Exam General: [non toxic], [no distress], [appears at stated age] Derm: [warm], [dry] Head: [atraumatic], [normocephalic], [symmetric] Eyes: [EOMI], [no lid lag], [anicteric sclera] Mouth: [no lip lesion], [mucus membranes moist] Cardiovascular: [S1S2 reg], [systolic murmur] Lungs: [CTA bilateral], [no rhonchi, no rales] , [no accessory muscle use] Abdominal: [soft], [ nontender to palpation], [no guarding], [no appreciable organomegaly] Ext: [no gross muscle atrophy], [no edema], [no contractures] Neuro: [no focal neuro deficits] Psych: [Alert], [oriented], [appropriate affect] - Labs CBC & Chem 7: 06/13/21 06:00 06/13/21 06:00 Labs: Abnormal Lab Results - Last 24 Hours (Table) 06/12/21 06/12/21 06/12/21 Range/Units 18:52 18:52 18:52 RBC 3.62 L (3.80-5.40) m/uL Hgb 11.0 L (11.4-16.0) gm/dL Hct 33.8 L (34.0-46.0) % MCHC (32.0-37.0) g/dL Lymphocytes # 0.7 L (1.0-4.8) k/uL PT 16.1 H (9.0-12.0) sec INR 1.6 H (<1.2) APTT 33.8 H (22.0-30.0) sec Sodium (137-145) mmol/L Chloride (98-107) mmol/L Anion Gap (10.00-18.00) mmol/L BUN (7-17) mg/dL AST (14-36) U/L Total Protein (6.2-8.2) g/dL Albumin (3.5-5.0) g/dL Albumin/Globulin Ratio (1.60-3.17) g/dL Urine Appearance Cloudy H (Clear) Urine Nitrite Positive H (Negative) Ur Leukocyte Esterase Large H (Negative) Urine WBC 94 H (0-5) /hpf Urine WBC Clumps Rare H (None) /hpf Urine Bacteria Rare H (None) /hpf Hyaline Casts 26 H (0-2) /lpf Urine Mucus Rare H (None) /hpf Urine Yeast (Budding) Occasional H (None) /hpf 06/12/21 06/13/21 06/13/21 Range/Units 18:52 06:00 06:00 RBC 3.48 L (3.80-5.40) m/uL Hgb 10.1 L (11.4-16.0) gm/dL Hct 31.9 L (34.0-46.0) % MCHC 31.7 L (32.0-37.0) g/dL Lymphocytes # (1.0-4.8) k/uL PT (9.0-12.0) sec INR (<1.2) APTT (22.0-30.0) sec Sodium 131 L (137-145) mmol/L Chloride 97 L (98-107) mmol/L Anion Gap 9.00 L (10.00-18.00) mmol/L BUN 18 H (7-17) mg/dL AST 59 H 44 H (14-36) U/L Total Protein 5.8 L (6.2-8.2) g/dL Albumin 3.2 L 3.3 L (3.5-5.0) g/dL Albumin/Globulin Ratio 1.32 L (1.60-3.17) g/dL Urine Appearance (Clear) Urine Nitrite (Negative) Ur Leukocyte Esterase (Negative) Urine WBC (0-5) /hpf Urine WBC Clumps (None) /hpf Urine Bacteria (None) /hpf Hyaline Casts (0-2) /lpf Urine Mucus (None) /hpf Urine Yeast (Budding) (None) /hpf Assessment and Plan Assessment: #Syncope #Systolic murmur #Atrial fibrillation #Hypertension #Normocytic anemia #Transaminitis #Abnormal urinalysis Result: Hyponatremia, elevated BUN Patient presents after a syncopal episode. Troponin/EKG has been trended and ACS has been ruled out. She will be continued on fall precautions and telemetry monitoring. Cardiology has evaluated the patient and recommends echocardiogram. Unfortunately, echocardiogram is not available today and will be done tomorrow morning. PT and OT will be consulted to work with this patient. She will be continued on metoprolol for rate control of atrial fibrillation. Restart Xarelto for stroke prevention. Continue losartan with regard to hypertension. Her anemia appears to be at baseline and will need to be worked up in the outpatient setting. Her transaminitis is of unknown etiology. Patient does not complain of any urinary symptoms and will not require antibiotics for abnormal urinalysis. We anticipate DC home tomorrow if echocardiogram is benign.
[2021-06-13] MEDS: KETOROLAC 15 MG/ML 1 ML VIAL IVP PRN (20:17)
[2021-06-14] MEDS ORDERED: MELATONIN 3 MG TABLET PO SCH (00:45)
[2021-06-14] MEDS: KETOROLAC 15 MG/ML 1 ML VIAL IVP PRN (02:15)
[2021-06-14 07:40] VITALS: RESP 18
[2021-06-14] MEDS: LOSARTAN 50 MG TAB PO SCH (08:13)
[2021-06-14] MEDS: MELOXICAM 7.5 MG TAB PO SCH (08:13)
[2021-06-14] MEDS: RIVAROXABAN 20 MG TAB PO SCH (08:13)
[2021-06-14] MEDS: METOPROLOL TARTRATE 50 MG TAB PO SCH (08:13)
[2021-06-14] MEDS ORDERED: MELOXICAM 7.5 MG TAB PO SCH (09:00)
[2021-06-14] MEDS ORDERED: amLODIPine 5 MG TAB PO SCH (09:45)
--- NOTE | 2021-06-14 10:07 | P.PN ---
Subjective Progress Note Date: 06/14/21 HISTORY OF PRESENT ILLNESS: 81-year-old lady with history of hypertension persistent atrial fibrillation who sees a media center specialist in the care comes to Hospital complaining of syncope. Patient states that she was cooking dinner standing in one place for a long time suddenly felt weak in her lower extremities and went down. She did not have bladder bowel incontinence did not have seizure did not have any injury. She recovered spontaneously. When the EMS arrived apparently she was hypotensive and subsequently her blood pressures have improved 80 at this morning the blood pressures are elevated in the 170s. So far the cardiac workup is negative. She remains in atrial fibrillation without any episodes of tachycardia or bradycardia arrhythmias. Cardiac enzymes have been negative. I'm told by the nurse that she did not have any orthostatic changes. I advised the patient to undergo an echocardiogram to evaluate her LV function and to rule out wall motion abnormalities. If she has any evidence of wall motion of normalities I will consider performing a Lexiscan on her. There is no prior history of coronary artery disease or congestive heart failure 06/14/2021 Patient examined this morning at the bedside. Patient denies chest pain or pressure. She denies shortness of breath. Patient's blood pressures are elevated this morning with a systolic in the 170s. However the patient was apparently noted to be hypotensive when EMS arrived and her blood pressures previously were in the 120s in the hospital. We will continue to monitor blood pressure at this time. Orthostatics are negative. Telemetry reveals atrial fibrillation with controlled ventricular rate PHYSICAL EXAM: VITAL SIGNS: Reviewed. GENERAL: Well-developed in no acute distress. NECK: Supple. No JVD or thyromegaly LUNGS: Respirations even and unlabored. Lungs essentially clear to auscultation bilaterally. HEART: Regular rate and rhythm. S1 and S2 heard. EXTREMITIES: Normal range of motion. No clubbing or cyanosis. Peripheral pulses intact. No lower extremity edema ASSESSMENT: Syncope Persistent atrial fibrillation Hypertension PLAN: 2D echo ordered. Await results Continue telemetry monitoring Continue to monitor BP. No medication changes at this time Further recommendations pending patient course Nurse practitioner note has been reviewed by physician. Signing provider agrees with the documented findings, assessment, and plan of care. Objective - Vital Signs Vital signs: Vital Signs Temp 98 F 06/14/21 07:00 Pulse 72 06/14/21 08:00 Resp 18 06/14/21 08:00 BP 179/90 06/14/21 07:00 Pulse Ox 96 06/14/21 07:00 Intake & Output 06/13/21 06/14/21 06/14/21 18:59 06:59 18:59 Intake Total 236 120 Balance 236 120 Intake: Oral 236 120 Other: Voiding Method Toilet Toilet Toilet # Voids 2 1 1 - Labs CBC & Chem 7: 06/13/21 06:00 06/13/21 06:00
--- NOTE | 2021-06-14 17:44 | P.DS ---
Providers Date of admission: 06/12/21 20:07 Expected date of discharge: 06/14/21 Attending physician: Mike Lyle MD Consults: 06/12/21 20:07 Consult Physician Routine Consulting Provider: Evens Howard Consult Reason/Comments: syncope Do you want consulting provider notified?: Yes Primary care physician: [facility] Course: 81 year old female with afib, hypertension Patient sustained a fall today while preparing dinner, she claims to be in perfect health, until todays episode that came out of no where. She was preparing dinner and suddenly she felt like passing out, she is not sure if she lost consciousness, but if she did she thinks it was very brief. She felt her heart racing, and had to fall down and hit the back of her head. She could not get up but did not want to come to the hospital if it was not for the insistence of her family. She currently feeling fine, denies chest pain, trouble breathing, focal neuro deficits, denies any headache, changes in vision or hearing. Senies any syncopal episodes in the past, no recent changes in her meds. She is feeling fine now. Patient presents after a syncopal episode. Troponin/EKG has been trended and ACS has been ruled out. She will be continued on fall precautions and telemetry monitoring. Cardiology has evaluated the patient and recommends echocardiogram. Echocardiogram was done but unfortunately the official read is still pending. PT and OT has cleared the patient for discharge. Given the patient has been ambulating her room without difficulties we will discharge patient home and advise her to follow-up with the PCP within 1-2 days of discharge. Her PCP can follow up with the results of echocardiogram. This complex discharge took about 45 minutes to complete. General: [non toxic], [no distress], [appears at stated age] Derm: [warm], [dry] Head: [atraumatic], [normocephalic], [symmetric] Eyes: [EOMI], [no lid lag], [anicteric sclera] Mouth: [no lip lesion], [mucus membranes moist] Cardiovascular: [S1S2 reg], [systolic murmur] Lungs: [CTA bilateral], [no rhonchi, no rales] , [no accessory muscle use] Abdominal: [soft], [ nontender to palpation], [no guarding], [no appreciable organomegaly] Ext: [no gross muscle atrophy], [no edema], [no contractures] Neuro: [no focal neuro deficits] Psych: [Alert], [oriented], [appropriate affect] #Syncope #Systolic murmur #Atrial fibrillation #Hypertension #Normocytic anemia #Transaminitis #Abnormal urinalysis Result: Hyponatremia, elevated BUN Pertinent Studies: Brain CT Chest XRay Echocardiogram Patient Condition at Discharge: Stable Plan - Discharge Summary New Discharge Prescriptions: Continue Metoprolol Tartrate [Lopressor] 50 mg PO BID Rivaroxaban [Xarelto] 20 mg PO DAILY HYDROcodone/APAP 7.5-325MG [[place] 7.5-325] 1 tab PO BID Meloxicam [Mobic] 15 mg PO DAILY Cholecalciferol [Vitamin D3 (25 Mcg = 1000 Iu)] 50 mcg PO DAILY Furosemide [Lasix] 20 mg PO DAILY Celecoxib [CeleBREX] 200 mg PO DAILY Zinc 50 mg PO DAILY Vit C/Ascorb Sod/Multivit-Min [Emergen-C 500 mg Chewable Tab] 500 mg PO DAILY Losartan Potassium 50 mg PO DAILY Discharge Medication List Metoprolol Tartrate [Lopressor] 50 mg PO BID 07/11/15 [History] HYDROcodone/APAP 7.5-325MG [[place] 7.5-325] 1 tab PO BID 12/30/18 [History] Rivaroxaban [Xarelto] 20 mg PO DAILY 12/30/18 [History] Meloxicam [Mobic] 15 mg PO DAILY 04/18/19 [History] Celecoxib [CeleBREX] 200 mg PO DAILY 06/12/21 [History] Cholecalciferol [Vitamin D3 (25 Mcg = 1000 Iu)] 50 mcg PO DAILY 06/12/21 [History] Furosemide [Lasix] 20 mg PO DAILY 06/12/21 [History] Losartan Potassium 50 mg PO DAILY 06/12/21 [History] Vit C/Ascorb Sod/Multivit-Min [Emergen-C 500 mg Chewable Tab] 500 mg PO DAILY 06/12/21 [History] Zinc 50 mg PO DAILY 06/12/21 [History] Follow up Appointment(s)/Referral(s): Ellis Benson DO [Primary Care Provider] - 1-2 days Activity/Diet/Wound Care/Special Instructions: Diet: Low-salt Follow-up with your PCP within 1-2 days of discharge. Follow-up with your PCP with regard to your echocardiogram results. Come back to the ED for worsening chest pain, shortness of breath, palpitations, dizziness/lightheadedness or syncopal episodes. Discharge Disposition: HOME SELF-CARE
--- NOTE | 2021-06-14 17:45 | CA ---
Transthoracic Echo Report Name: lCary Maravilla Age: 81 Gender: F : 1940 Exam Date: 06/14/2021 08:35 Exam Location: [place] [facility] Ht (in): 63 Wt (lb): 135 Ordering Physician: Giles Engel MD ([id number]) Attending/Referring Phys: Toro GAMA [employer]older Cindy Harry RDCS Procedure CPT: Indications: Syncope Cardiac Hx: Hx of murmur Technical Quality: Technically difficult study Contrast 1: Total Dose (mL): Contrast 2: Total Dose (mL): MEASUREMENTS (Male / Female) Normal Values 2D ECHO LV Diastolic Diameter PLAX 2.9 cm 4.2 - 5.9 / 3.9 - 5.3 cm LV Systolic Diameter PLAX 2.3 cm IVS Diastolic Thickness 1.1 cm 0.6 - 1.0 / 0.6 - 0.9 cm LVPW Diastolic Thickness 1.2 cm 0.6 - 1.0 / 0.6 - 0.9 cm LV Relative Wall Thickness 0.8 RV Internal Dim ED PLAX 2.4 cm LVOT Diameter 1.6 cm LA Volume 70.9 cm 18 - 58 / 22 - 52 cm M-MODE Aortic Root Diameter MM 3.0 cm LA Systolic Diameter MM 3.5 cm LA Ao Ratio MM 1.2 MV E Point Septal Separation 1.4 cm AV Cusp Separation MM 0.9 cm DOPPLER AV Peak Velocity 225.0 cm/s AV Peak Gradient 20.2 mmHg AV Mean Velocity 170.7 cm/s AV Mean Gradient 12.9 mmHg AV Velocity Time Integral 45.5 cm AI Peak Velocity 361.0 cm/s AI Peak Gradient 52.1 mmHg AI Pressure Half Time 578.2 ms LVOT Peak Velocity 61.2 cm/s LVOT Peak Gradient 1.5 mmHg AV Area Cont Eq pk 0.6 cm MR Peak Velocity 225.7 cm/s MR Peak Gradient 20.4 mmHg TR Peak Velocity 300.6 cm/s TR Peak Gradient 36.1 mmHg Right Ventricular Systolic Press 51.0 mmHg FINDINGS Left Ventricle Mild LVH. Normal Left ventricular size, systolic function with no obvious regional wall motion abnormalities. Right Ventricle Normal right ventricular size and function. Moderate pulmonary hypertension. Right Atrium Normal right atrial size. Left Atrium Moderately increased left atrial volume. Mildly increased left atrial area. Mitral Valve Mitral valve thickened. Mild mitral regurgitation. Aortic Valve Mild aortic stenosis with a peak gradient of 20 mmHg and a mean gradient of 13 mmHg. Moderate aortic regurgitation. Tricuspid Valve Mild tricuspid regurgitation. Pulmonic Valve Pulmonic valve not well visualized. Structurally normal pulmonic valve. Pericardium Normal pericardium. Aorta Aortic root and proximal ascending aorta not well visualized. Normal size aortic root and proximal ascending aorta. CONCLUSIONS Normal LV size and function No pericardial effusion Previewed by: Dr. Zhang Owusu MD (Electronically Signed) Final Date: 14 Jun 2021 17:44
[2021-06-14 19:31] VITALS: BP 165/90; PULSE 89; TEMP 97.8
== END 2021-06-14 19:56 | disposition home or self-care (01) ==
LOC: EC 18:28 → 6NMEDSUR 20:07
PROVIDERS: ADMIT Internal Medicine; ATTEND Internal Medicine
DX: R55 Syncope and collapse (principal); R01.1 Cardiac murmur, unspecified; I48.19 Other persistent atrial fibrillation; I11.0 Hypertensive heart disease with heart failure; I50.9 Heart failure, unspecified; D64.9 Anemia, unspecified; R74.01 Elevation of levels of liver transaminase levels; R82.90 Unspecified abnormal findings in urine; E87.1 Hypo-osmolality and hyponatremia; E03.9 Hypothyroidism, unspecified; I95.9 Hypotension, unspecified; E78.5 Hyperlipidemia, unspecified; G43.909 Migraine, unspecified, not intractable, without status migrainosus; G58.9 Mononeuropathy, unspecified; J45.909 Unspecified asthma, uncomplicated; W19.XXXA Unspecified fall, initial encounter; Z98.41 Cataract extraction status, right eye; Z98.42 Cataract extraction status, left eye; Z96.1 Presence of intraocular lens; Z87.01 Personal history of pneumonia (recurrent); J34.2 Deviated nasal septum; K21.9 Gastro-esophageal reflux disease without esophagitis; K44.9 Diaphragmatic hernia without obstruction or gangrene; K57.90 Diverticulosis of intestine, part unspecified, without perforation or abscess without bleeding; K76.89 Other specified diseases of liver; M19.90 Unspecified osteoarthritis, unspecified site; M54.9 Dorsalgia, unspecified; Z79.01 Long term (current) use of anticoagulants; Z79.1 Long term (current) use of non-steroidal anti-inflammatories (NSAID); Z79.899 Other long term (current) drug therapy; Z71.3 Dietary counseling and surveillance; Z87.891 Personal history of nicotine dependence; Z90.711 Acquired absence of uterus with remaining cervical stump; Z83.3 Family history of diabetes mellitus; Z80.1 Family history of malignant neoplasm of trachea, bronchus and lung
CPT/HCPCS: 99285; 96376; 96374; 96361; 36415; 93005; 93306; 97162; 97165; 80053 ×2; 83735; 84484 ×2; 85025 ×2; 85610; 85730; 81001; 71046; 70450; G0378 ×3; J1885 ×2

== ENCOUNTER → 2022-09-24 | Outpatient (CLI) | payer MEDICARE ==
[2022-09-24 11:32] LABS: INR 1.3 (<1.2); Partial Thromboplastin Time 31.6 sec (22.0-30.0)
[2022-09-25 00:04] LABS: Appearance,Urine Cloudy (Clear); Bilirubin,Urine Negative (Negative); Blood,Urine Negative (Negative); Color,Urine Yellow (Yellow); Ketones,Urine Trace (Negative); Nitrite,Urine Positive (Negative); Specific Gravity,Urine 1.016 (1.001-1.030)
[2022-09-25 00:09] LABS: Bacteria,Urine 3+ (None Seen)
[2022-09-25 07:33] LABS: HCT 36.1 % (37.2-46.3); HGB 11.4 d/dL (12.0-15.0); MCH 29.9 pg (27.0-32.0); MCHC 31.6 d/dL (32.0-37.0); MCV 94.8 FL (80.0-97.0); Mean Platelet Volume 10.5 FL (9.5-12.2); NRBC Per 100 WBC 0 X 10*3/uL (0.00-0.01); Platelet Count 361 X 10*3/uL (140-440); RBC 3.81 X 10*6/uL (4.10-5.20); RDW 13.2 % (11.5-14.5); WBC 6.34 X 10*3/uL (4.50-10.00)
[2022-09-25 08:11] LABS: ALT 14 U/L (8-44); AST 31 U/L (13-35); Albumin 4.1 d/dL (3.8-4.9); Albumin/Globulin Ratio 1.24 Ratio (1.60-3.17); Alkaline Phosphatase 156 U/L (41-126); BUN/Creat Ratio 18.75 Ratio (12.00-20.00); Calcium 9.7 mg/dL (8.7-10.3); Carbon Dioxide 24.3 mmol/L (21.6-31.8); Chloride 99 mmol/L (96-109); Chol/HDL Ratio 2.61 Ratio; Globulin 3.3 d/dL (1.6-3.3); Glucose 89 mg/dL (70-110); Sodium 136 mmol/L (135-145); Total Bilirubin 0.6 mg/dL (0.3-1.2); Total Protein 7.4 d/dL (6.2-8.2)
== END | disposition home or self-care (01) ==
LOC: LABPAT 09:47
PROVIDERS: ATTEND Orthopaedic Surgery
DX: Z01.818 Encounter for other preprocedural examination (principal); M16.11 Unilateral primary osteoarthritis, right hip; I48.0 Paroxysmal atrial fibrillation; R94.31 Abnormal electrocardiogram [ECG] [EKG]
CPT/HCPCS: 36415; 80053; 80061; 81001; 85027; 85610; 85730; 87070; 93005

== ENCOUNTER → 2023-01-06 | Outpatient (CLI) | payer MEDICARE ==
[2023-01-06 13:27] LABS: INR 1.8 (<1.2); Partial Thromboplastin Time 37.2 sec (22.0-30.0)
[2023-01-06 16:22] LABS: HCT 34.7 % (37.2-46.3); HGB 11.3 g/dL (12.0-15.0); MCH 29.9 pg (27.0-32.0); MCHC 32.6 g/dL (32.0-37.0); MCV 91.8 FL (80.0-97.0); Mean Platelet Volume 10.3 FL (9.5-12.2); NRBC Per 100 WBC 0 X 10*3/uL (0.00-0.01); Platelet Count 297 X 10*3/uL (140-440); RBC 3.78 X 10*6/uL (4.10-5.20); RDW 14.3 % (11.5-14.5); WBC 6.31 X 10*3/uL (4.50-10.00)
[2023-01-06 16:48] LABS: Appearance,Urine Cloudy (Clear); Bilirubin,Urine Negative (Negative); Blood,Urine Trace (Negative); Color,Urine Yellow (Yellow); Ketones,Urine Negative (Negative); Nitrite,Urine Positive (Negative); PH, Urine 6.5
[2023-01-06 16:49] LABS: ALT 19 U/L (8-44); AST 42 U/L (13-35); Albumin 3.9 g/dL (3.8-4.9); Alkaline Phosphatase 170 U/L (41-126); Blood Urea Nitrogen 8.4 mg/dL (9.0-27.0); Calcium 9.3 mg/dL (8.7-10.3); Carbon Dioxide 27.4 mmol/L (21.6-31.8); Chloride 100 mmol/L (96-109); Glucose 94 mg/dL (70-110); Potassium 4.6 mmol/L (3.5-5.5); Sodium 138 mmol/L (135-145); Total Bilirubin 0.5 mg/dL (0.3-1.2); Total Protein 6.9 g/dL (6.2-8.2)
[2023-01-06 17:15] LABS: Bacteria,Urine 3+ (None Seen); UA Starch Present (None Seen)
[2023-01-06 20:52] LABS: Prothrombin Time 17.8 sec (10.0-12.5)
== END | disposition home or self-care (01) ==
LOC: LABPAT 12:24
PROVIDERS: ATTEND Orthopaedic Surgery
DX: Z01.812 Encounter for preprocedural laboratory examination (principal); M16.11 Unilateral primary osteoarthritis, right hip
CPT/HCPCS: 36415; 80053; 81001; 85027; 85610; 85730; 86850; 86900; 86901; 87070

== ENCOUNTER 2023-01-17 07:02 | Day surgery (SDC) | payer MEDICARE ==
[~2023-01-17 07:02] MED LIST: ACETAMINOPHEN TAB 500 MG TAB PO PRN; DEXAMETHASONE SOD PHOSPHATE 4 MG/ML 1 ML VIAL IV ONE; GABAPENTIN 300 MG CAP PO PRN; HYDROmorphone 0.5 MG/0.5 ML SYRINGE IVP PRN; MELOXICAM 7.5 MG TAB PO PRN; ONDANSETRON 4 MG/2 ML VIAL IVP ONE; TRANEXAMIC 1,000 MG/100ML-NACL 1,000 MG in SALINE 1 100ML.BAG IVPB PRN
[2023-01-17] MEDS: LACTATED RINGERS 1,000 ML IV SCH (07:57)
[2023-01-17 08:22] LABS: INR 1.1 (<1.2); Partial Thromboplastin Time 26.3 sec (22.0-30.0); Prothrombin Time 12.1 sec (10.0-12.5)
[2023-01-17] MEDS ORDERED: MIDAZOLAM 2 MG/2 ML VIAL IVP ONE (08:35)
[2023-01-17] MEDS ORDERED: fentaNYL (PF) 50 MCG/ML 2 ML AMP IVP ONE (08:37)
[2023-01-17] MEDS ORDERED: NALOXONE 0.4 MG/ML 1 ML VIAL IV PRN (08:37)
[2023-01-17] MEDS ORDERED: HYDROmorphone 0.5 MG/0.5 ML SYRINGE IVP PRN ×3 (08:37)
[2023-01-17] MEDS ORDERED: MAGNESIUM HYDROXIDE 2,400 MG/30 ML CUP PO PRN (08:37)
[2023-01-17] MEDS ORDERED: ONDANSETRON 4 MG/2 ML VIAL IVP PRN (08:37)
[2023-01-17] MEDS ORDERED: HYDROcodone/APAP 7.5-325MG 1 EACH TAB PO PRN (08:39)
[2023-01-17] MEDS ORDERED: PROPOFOL 10 MG/ML 20 ML VIAL IV ONE (08:54)
[2023-01-17] MEDS ORDERED: PHENYLEPHRINE-0.9% NACL SYG 1,000 MCG/10 ML SYRINGE ONE (08:54)
[2023-01-17] MEDS ORDERED: ROPIVACAINE 5 MG/ML 30 ML VIAL ONE (08:54)
[2023-01-17] MEDS ORDERED: TRANEXAMIC 1,000 MG/100ML-NACL PREMIX BAG ONE (08:54)
[2023-01-17] MEDS ORDERED: fentaNYL (PF) 50 MCG/ML 2 ML AMP ONE (08:54)
[2023-01-17] MEDS ORDERED: ROPIVACAINE 5 MG/ML 30 ML VIAL MISCELLANE ONE ×2 (09:27→10:03)
[2023-01-17] MEDS ORDERED: ceFAZolin 1,000 MG in SODIUM CHLORIDE 0.9% 1,000 ML IRRIGATION ONE (09:28)
--- NOTE | 2023-01-17 10:11 | P.OP ---
Date of Procedure: 01/17/23 Preoperative Diagnosis: Severe osteoarthritis of the right hip Postoperative Diagnosis: Severe osteoarthritis of the right hip Procedure(s) Performed: Right total hip arthroplasty with a direct anterior approach Implants: [employer] Polarstem standard size 8 with a collar [employer] R3, multi-hole hemispherical acetabular shell, 52 mm [employer] Reflection 6.5 mm cancellus screw, 20 mm 2, 25 mm [employer] R3, XLPE 20 acetabular liner [employer] Oxinium femoral head 36 mm, +4 Montage bone graft All components were press-fit. The articulation is Oxinium on polyethylene. Anesthesia: spinal Surgeon: Demetri Bhagat Franchise Development Manager #1: Torri Che Estimated Blood Loss (ml): 200 Pathology: none sent Condition: stable Disposition: PACU Indications for Procedure: After failure of conservative treatment we discussed the surgical and nonsurgical treatment options at length. Patient wishes to proceed with a total hip arthroplasty with a direct anterior approach. Complications specific to thi s procedure were discussed at length, including but not limited to infection, leg length discrepancy, dislocation, nerve injury, and fracture. Covid-19 was also discussed at length with the patient, and they are aware of the current policies and procedures. The patient was given the option of delaying surgery, but they elect to proceed knowing these risks. Patient is aware of all these complications and informed consent was obtained Operative Findings: The operative findings are consistent with severe osteoarthritis of the right hip Description of Procedure: The patient was seen and evaluated in the preoperative area and the consent was reviewed. The operative site was marked with a skin marker. The patient verified the procedure and operative site. A JESUSITA block was placed by anesthesia in the preoperative area. The patient was then brought to the operating room and given preoperative antibiotics intravenously. 1 g of Tra nexamic acid was also given intravenously. A spinal anesthetic was administered by the anesthesia department. The patient was then placed on the [place] table with the bony prominences well-padded. The hip area was then prepped with a ChloraPrep solution and draped in the usual sterile fashion. A universal timeout was then performed, which confirmed the patient's name, surgical site, ALLERGIES, and procedure being performed on the consent. Next the incision site was located at 1 cm distal and 4 cm lateral to the anterior superior iliac spine. The skin and subcutaneous tissues were sharply incised. Incision was carefully dissected down to the fascia overlying the tensor fascia moni muscle. This fascia was then incised in line with the muscle fibers. Care was taken to stay laterally in order to avoid injuring the lateral femoral cutaneous nerve. Next, using blunt finger dissection, the tensor fascia moni muscle was dissected off its investing fascia. The muscle was then carefully retracted laterally with a cobra retractor over the lateral neck of the femur. Next, the circumflex vessels were identified and cauterized using the Aquamantis device. The anterior hip capsule was then exposed. The capsule was then opened and an inverted T fashion. The retractors were then placed intracapsularly. The retractors were maintained intracapsular throughout the procedure. The pr oximal femur was then visualized. Fluoroscopic x-rays were then taken in order to evaluate the preoperative leg lengths. A small amount of traction was placed on the leg. The femoral neck was then osteotomized at the appropriate level above the lesser trochanter. A small wedge of bone was then removed from the remaining femoral head. Next, using a corkscrew the femoral head was removed from the acetabulum. On gross visual inspection, the femoral head had complete loss of articular cartilage and multiple periarticular osteophytes. The femoral head was then measured. Attention was then turned to the acetabulum. The acetabulum was exposed and any remaining labrum was excised. Sequential reaming of the acetabulum was performed using fluoroscopic guidance until there was a good bed of bleeding cancellus bone. When the appropriate size was reached, a trial was then placed. The position and fit of the trial was checked with fluoroscopy. The trial was then removed. Then, using fluoroscopic guidance, the final implant was impacted at 20 of anteversion and 40 of abduction, and fully seated in the acetabulum. 2 screws were then placed in the acetabulum. Again fluoroscopy was used to check position of the screws. Next, the liner was then impacted, with a 20 elevated liner located in the anterior superior quadrant. Component locking was confirmed. Attention was then directed to the femur. With the aid of the [place]iden table, the femur was externally rotated to approximately 130, extended, and adducted under the opposite leg. A side hook was then placed under the proximal femur, and the side hook elevator was used to elevate the proximal femur while releasing the capsule. Retractors were then placed. A capsular release was performed, as well as a release of the conjoined tendon, which afforded excellent visualization of the proximal femur. Next, a box osteotome was used to lateralize the proximal femur. A pattern hand was then used to locate the femoral canal. Sequential broaching was then performed with appropriate size which afforded excellent fixation in the proximal femur. A trial was then placed with appropriate head and neck, and the hip was gently reduced with the aid of the [place] table. Fluoroscopy was then used to check position of the components, as well as to evaluate the leg lengths and offset. The leg lengths and offset were measured as closely as possible to ensure stability of the hip. The hip was then gently dislocated and the trials were then removed. Final implants were then impacted and Montage bone graft was placed around the proximal femur due to the patient's significant osteoporosis. The hip was again reduced. Final fluoroscopic x-rays confirmed that the components were in anatomic position. The leg lengths and offset were measured and were found to coincide with the trial measurements. The hip was also taken through range of motion, and found to be stable. The hip was then copiously irrigated with antibiotic solution with pulsatile lavage. The hip was then irrigated with Irrisept solution. The soft tissues were then injected with a ropivacaine solution. A second dose of 1 g of Tranexamic acid was also given intravenously. The fascia was then closed with 2-0 strata fix suture. The subcutaneous tissue was closed with 3-0 Vicryl. The subcuticular tissue was closed with 3-0 strata fix suture. The skin was then closed with Exofin skin glue. After the glue and dried, and Optifoam silver impregnated dressing was applied. The patient was then transferred to the recovery room in stable condition. The orthodontic assistant ILIANA Delvalle was required due to the complexity of surgery, and the need for skilled surgical rn for positioning, draping, exposure, retraction, and closure of the wound.
--- NOTE | 2023-01-17 10:21 | XR ---
Fluoroscopy INDICATION: Pain FINDINGS: Fluoroscopy time: 26.2 seconds. Total dose area product (DAP) in uGy*m?, mGy*cm? (or similar): 0.8156 Images obtained: 4. IMPRESSION: 1. Documentation of fluoroscopy.
[2023-01-17] MEDS ORDERED: LACTATED RINGERS 1,000 ML IV ONE (10:25)
--- NOTE | 2023-01-17 11:04 | XR ---
EXAMINATION TYPE: XR Hip Limited RT DATE OF EXAM: 01/17/2023 Comparison: None Clinical History: 82-year-old female Status post hip surgery, assess surgical alignment Findings: Generator device projects over the right iliac crest with sacral stimulator lead. Some surgical clips in the pelvis. Postoperative changes right hip total arthroplasty. Both acetabular cup and femoral s tem components of the prosthesis appear well seated without periprosthetic fracture identified. Soft tissue air related to recent operation. Alignment grossly anatomic. Impression: Uncomplicated postoperative appearance right total hip arthroplasty.
--- NOTE | 2023-01-17 11:34 | FL ---
EXAMINATION TYPE: FL guidance operating room DATE OF EXAM: 01/17/2023 Clinical History: RIGHT ANTERIOR HIP Findings: 26 sec FL .8156 mGycm2 DAP dose 4 images provided Impression: Intraoperative fluoroscopy as above.
[2023-01-17 13:52] VITALS: RESP 18
[2023-01-17] MEDS ORDERED: ALPRAZolam 0.25 MG TAB PO PRN (14:15)
[2023-01-17] MEDS ORDERED: prednisoLONE ACETATE 1% OPHTH DROPS 5 ML BTL BOTH EYES PRN (14:15)
[2023-01-17] MEDS ORDERED: ACETAMINOPHEN TAB 325 MG TAB PO PRN (14:15)
[2023-01-17] MEDS: SODIUM CHLORIDE 0.9% 1,000 ML IV SCH (16:22)
[2023-01-17 20:24] LABS: Glucose,Whole Blood 183 mg/dL (70-110)
[2023-01-17] MEDS ORDERED: SENNOSIDES-DOCUSATE SODIUM 1 EACH TAB PO SCH (21:00)
[2023-01-18] MEDS: SODIUM CHLORIDE 0.9% 1,000 ML IV SCH (01:13)
[2023-01-18] MEDS: HYDROcodone/APAP 7.5-325MG 1 EACH TAB PO PRN ×3 (01:17→12:06)
[2023-01-18 05:55] LABS: Glucose,Whole Blood 116 mg/dL (70-110)
[2023-01-18] MEDS: LACTATED RINGERS 1,000 ML IV SCH (07:53)
[2023-01-18 08:44] VITALS: BP 104/58; PULSE 86; TEMP 97.8
[2023-01-18] MEDS ORDERED: LOSARTAN 50 MG TAB PO SCH (09:00)
[2023-01-18] MEDS ORDERED: ZINC SULFATE 220 MG CAP PO SCH (09:00)
[2023-01-18] MEDS ORDERED: METOPROLOL TARTRATE 25 MG TAB PO SCH (09:00)
[2023-01-18] MEDS ORDERED: FUROSEMIDE 20 MG TAB PO SCH (09:00)
[2023-01-18] MEDS ORDERED: CHOLECALCIFEROL 25 MCG (1000 IU) TABLET PO SCH (09:00)
[2023-01-18] MEDS ORDERED: ESCITALOPRAM 20 MG TAB PO SCH (09:00)
[2023-01-18] MEDS ORDERED: RIVAROXABAN 20 MG TAB PO SCH (09:00)
[2023-01-18] MEDS ORDERED: CYANOCOBALAMIN 500 MCG TAB PO SCH (09:00)
--- NOTE | 2023-01-18 09:45 | P.DS ---
Providers Expected date of discharge: 01/18/23 Attending physician: Demetri Bhagat Consults: 01/17/23 08:37 Consult Physician Routine Consulting Provider: Cyndie Harvey Consult Reason/Comments: medical management Do you want consulting provider notified?: Yes Primary care physician: Ellis Benson - Discharge Diagnosis(es) (1) Osteoarthritis of right hip Current Visit: Yes Status: Acute (2) S/P total right hip arthroplasty Current Visit: Yes Status: Acute Hospital Course: This is a 82-year-old female with known history of degenerative arthritis of the right hip. The patient presented for evaluation as an outpatient. After discussion and consideration patient elects to proceed with total hip arthroplasty. The patient is seen preoperatively by Dr. Bhagat and medically cleared for surgery by their primary care physician. Patient is admitted to [facility] on 01/17/2023 for total hip arthroplasty. The procedure is performed without complication or sequelae. The patient is doing well postoperatively. Labs and vital signs are stable on day of discharge. On day of discharge patient's hip incision is healing well. There is minimal erythema. There is no drainage noted at this time. There is minimal soft tissue swelling to the hip and thigh. Patient has full foot and ankle motion without difficulty or pain. Calf is soft and nontender to palpation. Neurovascular status to the right lower extremity is intact. Patient is discharged home in good condition. Patient has a pain contract with another physician who will manage postoperative pain. Please see med rec for accurate list of home medications. Plan - Discharge Summary Discharge Rx Participant: No New Discharge Prescriptions: No Action Rivaroxaban [Xarelto] 20 mg PO DAILY HYDROcodone/APAP 7.5-325MG [[place] 7.5-325] 1 tab PO BID Cholecalciferol [Vitamin D3 (25 Mcg = 1000 Iu)] 50 mcg PO DAILY Furosemide [Lasix] 20 mg PO QAM Zinc 50 mg PO DAILY Metoprolol Tartrate 25 mg PO QAM ALPRAZolam [Xanax] 0.25 mg PO DAILY PRN PRN Reason: ANXIETY/INSOMNIA Prednisolone Acetate/Pf [Prednisolone Acet 1% Eye Drop] 1 drop BOTH EYES DAILY PRN PRN Reason: dryness Lexapro(Unk) 1 tab PO DAILY Losartan Potassium 50 mg PO QAM Acetaminophen [Tylenol Arthritis] 650 mg PO Q6H PRN PRN Reason: Pain Cyanocobalamin (Vitamin B-12) [Vitamin B-12] 1 tab PO DAILY Cranberry With Vitamin C 1 tab PO DAILY Discharge Medication List HYDROcodone/APAP 7.5-325MG [[place] 7.5-325] 1 tab PO BID 12/30/18 [History] Rivaroxaban [Xarelto] 20 mg PO DAILY 12/30/18 [History] Cholecalciferol [Vitamin D3 (25 Mcg = 1000 Iu)] 50 mcg PO DAILY 06/12/21 [History] Furosemide [Lasix] 20 mg PO QAM 06/12/21 [History] Losartan Potassium 50 mg PO QAM 06/12/21 [History] Zinc 50 mg PO DAILY 06/12/21 [History] ALPRAZolam [Xanax] 0.25 mg PO DAILY PRN 09/26/22 [History] Acetaminophen [Tylenol Arthritis] 650 mg PO Q6H PRN 09/26/22 [History] Cranberry With Vitamin C 1 tab PO DAILY 09/26/22 [History] Cyanocobalamin (Vitamin B-12) [Vitamin B-12] 1 tab PO DAILY 09/26/22 [History] Metoprolol Tartrate 25 mg PO QAM 09/26/22 [History] Prednisolone Acetate/Pf [Prednisolone Acet 1% Eye Drop] 1 drop BOTH EYES DAILY PRN 09/26/22 [History] Lexapro(Unk) 1 tab PO DAILY 01/11/23 [History] Follow up Appointment(s)/Referral(s): Demetri Bhagat DO [Doctor of Osteopathic Medicine] - 2 Weeks Activity/Diet/Wound Care/Special Instructions: Weightbearing as tolerated with walker. Leave dressing intact. Dressing may be removed by home care nurse or by patient in 7 days. Then change dressing twice daily until follow up. May shower with initial dressing intact and after removal. If dressing become saturated, please remove. Please resume Xarelto. Pain management per pain management physician. Recommend use of compression stockings daily until follow up to help prevent swelling and blood clots. May remove at night before sleeping. Please follow-up with [facility] in 2 weeks and call with any questions or concerns, . Discharge Disposition: HOME WITH HOME HEALTH SERVICES
[2023-01-18 11:24] LABS: Glucose,Whole Blood 120 mg/dL (70-110)
--- NOTE | 2023-01-18 11:24 | P.PN ---
Subjective Progress Note Date: 01/18/23 * 82-year-old patient with past medical history significant for chronic atrial fibrillation, hypertension, history of hyperlipidemia, gastroesophageal reflux disease was admitted for severe osteoarthritis of hip and elective right hip arthroplasty. * Internal medicine team was consulted for postoperative medical management * Postoperatively CBC and basic metabolic panel has been requested, * Patient had INR check pro-procedure with INR of 1.1 * Postprocedure patient does complain of discomfort at the site of surgery * 01/18/2023: Patient seen and evaluated bedside, patient alert and oriented times all denies of postoperative hip pain REVIEW OF SYSTEMS: Discomfort postoperatively resolved CONSTITUTIONAL: No fever, no malaise, no fatigue. HEENT: No recent visual problems or hearing problems. Denied any sore throat. CARDIOVASCULAR: No chest pain, orthopnea, PND, no palpitations, no syncope. PULMONARY: No shortness of breath, no cough, no hemoptysis. GASTROINTESTINAL: No diarrhea, no nausea, no vomiting, no abdominal pain. NEUROLOGICAL: No headaches, no weakness, no numbness. HEMATOLOGICAL: Denies any bleeding or petechiae. GENITOURINARY: Denies any burning micturition, frequency, or urgency. MUSCULOSKELETAL/RHEUMATOLOGICAL: Denies any joint pain, swelling, or any muscle pain. ENDOCRINE: Denies any polyuria or polydipsia. PHYSICAL EXAMINATION: GENERAL: The patient is alert and oriented x3, not in any acute distress. Well developed, well nourished. HEENT: Pupils are round and equally reacting to light. EOMI. CARDIOVASCULAR: S1 and S2 present. No murmurs, rubs, or gallops. PULMONARY: Chest is clear to auscultation, no wheezing or crackles. ABDOMEN: Soft, nontender, nondistended, normoactive bowel sounds. No palpable organomegaly. MUSCULOSKELETAL: Right hip bandage range of motion improved, no hematoma noted EXTREMITIES: No cyanosis, clubbing, or pedal edema. NEUROLOGICAL: Gross neurological examination did not reveal any focal deficits. Objective - Vital Signs Vital signs: Vital Signs Temp 97.8 F 01/18/23 08:00 Pulse 86 01/18/23 08:00 Resp 18 01/18/23 08:00 BP 104/58 01/18/23 08:00 Pulse Ox 100 01/18/23 08:00 FiO2 Intake & Output 01/17/23 01/18/2323 18:59 06:59 18:59 Intake Total 1051 Output Total 200 1 Balance 851 -1 Weight 57.6 kg Intake: IV 1051 Output: Urine 1 Estimated Blood Loss 200 Other: Voiding Method Toilet # Voids 1 1 - Labs Labs: Abnormal Lab Results - Last 24 Hours (Table) 01/17/23 01/18/23 Range/Units 20:22 05:54 POC Glucose (mg/dL) 183 H 116 H (70-110) mg/dL Assessment and Plan Assessment: Assessment and plan * Status post right hip total arthroplasty for osteoarthritis POD 2 * History of atrial fibrillation * On chronic anticoagulation for atrial fibrillation * History of hypertension * In regards to postoperative management, continue postoperative antibiotic per protocol, home medications reviewed and reconciled * In regards to history affective ablation continue patient on metoprolol and Xarelto, monitor for bleeding from site of surgery * In regards to history of hypertension continue home regimen including losartan, Lasix, metoprolol * CBC and basic metabolic panel pending if stable okay to discharge from medicine standpoint * Status is full code
[2023-01-18 11:29] LABS: Basophils % (A) 0 %; Eosinophils % (A) 0 %; HCT 27.1 % (34.0-46.0); HGB 8.9 gm/dL (11.4-16.0); Hypochromasia Slight; Lymphocytes # (A) 1.4 k/uL (1.0-4.8); Lymphocytes % (A) 18 %; MCH 31.1 pg (25.0-35.0); MCHC 32.8 g/dL (31.0-37.0); MCV 94.7 fL (80.0-100.0); Mean Platelet Volume 8.6; Monocytes # (A) 0.5 k/uL (0-1.0); Monocytes % (A) 7 %; Neutrophils # (A) 5.5 k/uL (1.3-7.7); Neutrophils % (A) 73 %; Platelet Count 238 k/uL (150-450); RBC 2.86 m/uL (3.80-5.40); RDW 14.3 % (11.5-15.5); WBC 7.6 k/uL (3.8-10.6)
[2023-01-18 15:30] LABS: Blood Urea Nitrogen 17.6 mg/dL (9.0-27.0); Calcium 8.4 mg/dL (8.7-10.3); Carbon Dioxide 23.6 mmol/L (21.6-31.8); Chloride 99 mmol/L (96-109); Glucose 64 mg/dL (70-110); Potassium 4.6 mmol/L (3.5-5.5); Sodium 134 mmol/L (135-145)
--- NOTE | 2023-01-20 10:05 | P.ANPRN ---
Procedure Note - Anesthesia - Nerve Block Performed Right Jorgito Single Time Out Performed: Yes ([id number]) Date of Procedure: 01/17/23 Procedure Start Time: 08:36 Procedure Stop Time: 08:41 Location of Patient: PreOp Indication: Acute Post-Operative Pain, Requested by Surgeon Specifically requested for management of pain by DrMigdalia: Demetri Bhagat Sedation Type: Sedate with meaningful contact maintained Preparation: Sterile Prep Position: Supine Catheter: None Needle Types: Pajunk Needle Gauge: 21 Ultrasound used to visualize needle placement: Yes Ultrasound used to observe medication spread: Yes Injectate: 0.5% Ropivacaine (see comment for volume) (30cc) Blood Aspirated: No Pain Paresthesia on Injection Noted: No Resistance on Injection: Normal Image Stored and Saved: Yes Events: Uneventful and Well Tolerated
== END 2023-01-18 15:42 | disposition home health service (06) ==
LOC: OR 07:02 → 4SSUR 10:27 → OR 01-18 15:42
PROVIDERS: ATTEND Orthopaedic Surgery
DX: M16.11 Unilateral primary osteoarthritis, right hip (principal); E78.5 Hyperlipidemia, unspecified; I10 Essential (primary) hypertension; I48.20 Chronic atrial fibrillation, unspecified; K21.9 Gastro-esophageal reflux disease without esophagitis; Z79.01 Long term (current) use of anticoagulants; Z79.899 Other long term (current) drug therapy; Z96.641 Presence of right artificial hip joint
CPT/HCPCS: 97161; 97535; 97166; 64447; 80048; 85025; 85610; 85730; 73501; 27130; C1713; C1776; J2250; J1100; J0690 ×3; J2405; J3010; J2795